=== PATIENT | female | born 1975 | race Caucasian/White ===

== ENCOUNTER → 2018-07-29 15:16 | Outpatient (CLI) | payer MEDICAID, SELFPAY ==
[2018-07-29 15:39] LABS: Basophils # 0.1 K/mm3 (0-0.2); Basophils % 0.9 % (0.1-2.0); Eosinophils # 0.3 K/mm3 (0.0-0.4); Eosinophils % 2.8 % (0.1-12.0); Hematocrit 33.7 % (37.0-47.0); Hemoglobin 10.9 g/dL (12.2-16.2); Lymphocytes # 2.5 K/mm3 (0.7-4.5); Mean Corpuscular HGB Conc 32.3 g/dL (31.8-35.4); Mean Corpuscular Hemoglobin 29.2 pg (27.0-31.2); Mean Corpuscular Volume 90.5 fl (81-99); Monocytes # 0.4 K/mm3 (0.1-1.0); Neutrophils # 6.6 K/mm3 (1.8-7.8); Neutrophils % 67.3 % (37.0-80.0); Platelet Count 354 K/mm3 (142-424); Red Blood Count 3.72 M/mm3 (4.20-5.40); Red Cell Distribution Width 14.1 % (11.5-17.5); White Blood Count 9.8 K/mm3 (4.8-10.8)
[2018-07-31 09:21] LABS: HIV Screen 4th Generation wRfx Non Reactive (Non Reactive)
[2018-07-31 14:20] LABS: Hepatitis B Surface Antigen Negative (Negative); Hepatitis C Antibody <0.1 s/co ratio (0.0-0.9); Rapid Plasma Reagin Ab Titer Non Reactive (NonRea<1:1); Rubella Antibodies, IgG <0.90 index (Immune >0.99)
== END ==
PROVIDERS: Visit Provider Nurse Practitioner Obstetrics & Gynecology
DX: Z3A.01 Less than 8 weeks gestation of pregnancy (principal)
CPT/HCPCS: 36415; 85025; 86592; 86703; 86762; 86850; 87340; 87380; G0432

== ENCOUNTER → 2018-08-07 14:43 | Outpatient (CLI) | payer MEDICAID, SELFPAY ==
--- NOTE | 2018-08-07 14:45 | US_ITS ---
US OB transvaginal HISTORY: ITS.REASON: US OB- Dates ORDERING PHYSICIAN: Marcin Shah MD PATIENT AGE: 43 years COMPARISON: None FINDINGS: An intrauterine gestational sac is present with a pole with a crown-rump length of 1.84cm correlating to gestational age of 8w3d. heart tones are present with an FHR of 174 bpm's. Yolk sac is noted. Adnexa: 1 cm left corpus luteum. IMPRESSION: Live intrauterine gestation at 8 weeks 3 days days as described above. Estimated due date by Ultrasound is 03/16/2019
== END ==
PROVIDERS: PCP Internal Medicine Adolescent Medicine; Visit Provider Nurse Practitioner Obstetrics & Gynecology
DX: O26.841 Uterine size-date discrepancy, first trimester (principal)
CPT/HCPCS: 76817

== ENCOUNTER 2018-08-08 08:53 | Outpatient (RCR) | payer MEDICAID, SELFPAY ==
--- NOTE | 2018-08-08 09:52 | HMH.OTOPEV ---
OT Inpatient Evaluation Rehab OT Outpatient Eval Start: 08/08/18 09:37 Freq: Status: Active Protocol: Document 08/08/18 09:37 RMSONIA (Rec: 08/08/18 09:52 [facility] [id number]) Electronically Signed By Curtis López OT 08/08/18 09:37 Outpatient Therapy Subjective History Subjective History Pt is a 43 year old female who reports to therapy for initial evaluation to right shoulder. 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 Pt explains this is when her pain began and has gradually become worse. Pt does demonstrate with a slight decrease in strength and AROM at right shoulder. Pt is also reporting she has tingling down her arm and into her fingers. She has not had an MRI or Xrays because she is currently 8 weeks . Pt will continue to be seen twice a week in order to address these deficits. Chief Complaint Pain Stiff Symptom Type Ache Throb Burning Tingling Symptoms Relieved By Rest/Positioning Symptoms Aggravated By Physical Activity Lifting Prior Functional Limitations None Current Functional Limitations Reaching Lifting Housework Sleeping Symptom Description Constant but Variable Level of pain today (0-10) 2 Pain scale - at its best (0-10) 1 Pain scale - at its worst (0-10) 10 Shoulder/Elbow Eval Shoulder Objective Measurements Shoulder ROM Right Shoulder ROM Limitations Pain Shoulder Abduction Active Range of 120 degrees Motion (degrees) Shoulder Flexion Active Range of Motion 115 degrees (degrees) Query Text: Shoulder External Rotation Active Range 65 degrees of Motion (degrees) Shoulder Internal Rotation Active Range 60 degrees of Motion (degrees) pain with active ROM shoulder exam right standard
== END 2018-08-08 09:00 | disposition home or self-care (01) ==
LOC: OT 08:53
PROVIDERS: Visit Provider Nurse Practitioner Family
DX: M67.911 Unspecified disorder of synovium and tendon, right shoulder (principal)
CPT/HCPCS: 97165

== ENCOUNTER → 2018-10-01 12:35 | Outpatient (CLI) | payer MEDICAID, SELFPAY ==
[2018-10-03 06:14] LABS: Buprenorphine, Urine Negative ng/mL (Cutoff=10)
== END ==
PROVIDERS: Visit Provider Nurse Practitioner Obstetrics & Gynecology
DX: Z34.90 Encounter for supervision of normal pregnancy, unspecified, unspecified trimester (principal)
CPT/HCPCS: 80307

== ENCOUNTER → 2018-10-31 12:45 | Outpatient (CLI) | payer MEDICAID, SELFPAY ==
--- NOTE | 2018-10-31 12:46 | US_ITS ---
US OB /maternal detail: INDICATION: ITS.REASON: US OB Complete ORDERING PHYSICIAN: Marcin Shah MD PATIENT AGE: 43 years TECHNIQUE: ultrasound transabdominal scanning. COMPARISON: No previous relevant studies. FINDINGS: Single viable intrauterine gestation. Cephalic position. Placenta: Lateral posterior placenta grade 1. There is a oval area of ossification is seen along the anterior aspect of the uterine wall possibly due to a small fibroid at approximately 3 cm. There is average amount fluid. The cervix appears satisfactory. Closed and measuring 3 cm in length. Complete survey performed and was unremarkable on the submitted images as in PACS. No discrete anomalies identified on survey imaging by technologist. Active fetus. Three-vessel cord with satisfactory umbilical cord insertion. 4- chamber heart noted. Survey of brain & ventricles unremarkable. Face and neck survey unremarkable. Diaphragm and chest views unremarkable. Abdomen: Both kidneys noted and unremarkable. Stomach noted and satisfactory. Spine: Survey of the spine satisfactory with no anomalies identified nor imaged. Both arms and legs noted. Amniotic Fluid: Adequate. Maternal adnexa: No significant findings. Measurements: Average ultrasound age 20w5d. Gestational Age 20w4d. Estimated due date by ultrasound age 0703/15/2019. Estimated weight 379 grams. BPD = 20w4d OFD = 21w0d HC = 20w1d AC = 21w0d FL = 21w0d Growth Percentile= 59% Heart Rate = 144 Cerebellum = 20w3d Humerus = 21w4d HC/AC is 1.11 (1.09-1.26). CI is 76% (70-86%). FL/BPD is 72%. FL/AC is 22%. IMPRESSION: There is a single fetus in cephalic presentation. heart body motion noted. The fetus is active. Average ultrasound age is 20 weeks and 5 days. All parameters correlate. No obvious anomalies. There is a persistent isoechoic area along the anterior aspect of the uterine wall possibly due to small fibroid at 3 cm.
== END ==
PROVIDERS: PCP Internal Medicine Adolescent Medicine; Visit Provider Nurse Practitioner Obstetrics & Gynecology
DX: Z36.0 Encounter for antenatal screening for chromosomal anomalies (principal)
CPT/HCPCS: 76811

== ENCOUNTER 2019-03-08 11:09 | Inpatient (IN) ==
[2019-03-08 12:14] LABS: Microscopic, Urine URINE MICROSCOPIC (MICROSCOPIC)
[2019-03-08 12:17] LABS: Appearance,Urine CLEAR (Clear); Bilirubin,Urine Negative (Negative); Blood, Urine 1+ (Negative); Color,Urine YELLOW (Yellow); Glucose,Urine (UA) Negative (Negative); Ketones,Urine Negative (Negative); Leukocyte Esterase,Urine Negative (Negative); PH,Urine 6.5 (5.0-8.5); Protein,Urine 3+ (Negative); Specific Gravity, Urine 1.025 (1.005-1.030); Urobilinogen,Urine 0.2 EU/dl (0.2)
[2019-03-08 12:22] LABS: Basophils # 0.1 K/mm3 (0-0.2); Basophils % 0.5 % (0.1-2.0); Eosinophils # 0.1 K/mm3 (0.0-0.4); Hematocrit 34.3 % (37.0-47.0); Hemoglobin 10.9 g/dL (12.2-16.2); Lymphocytes # 1.4 K/mm3 (0.7-4.5); Lymphocytes % 11.3 % (10-50); Mean Corpuscular HGB Conc 31.7 g/dL (31.8-35.4); Mean Corpuscular Volume 88.3 fl (81-99); Mean Platelet Volume 9.5 fl (7.4-10.4); Monocytes # 0.5 K/mm3 (0.1-1.0); Monocytes % 3.6 % (1.7-9.3); Neutrophils # 10.7 K/mm3 (1.8-7.8); Neutrophils % 83.6 % (37.0-80.0); Platelet Count 168 K/mm3 (142-424); Red Blood Count 3.88 M/mm3 (4.20-5.40); White Blood Count 12.8 K/mm3 (4.8-10.8)
[2019-03-08 12:28] LABS: Amphetamine/Metha Screen,Urine Negative ng/mL (<1000); Barbiturates Screen,Urine Negative ng/mL (<200); Benzodiazepines Screen,Urine Negative ng/mL (<200); Cannabinoid Screen,Urine Positive ng/mL (<50); Cocaine Screen,Urine Negative ng/mL (<300); Methadone Screen,Urine Negative ng/mL (<300); Opiate Screen,Urine Negative ng/mL (<300); Phencyclidine Screen,Urine Negative ng/mL (<25)
[2019-03-08 12:38] LABS: Bacteria,Urine Trace /lpf
--- NOTE | 2019-03-08 14:23 | Progress Note ---
[facility] Anesthesia Checklist - Patient Identification Patient Identification: Arm Band, Verbal (Name & ) - Structural Data Admitted From: Inpatient Planned Operative Procedure/s: labor epidural Consent for Planned Operative Procedure(s) Verified: Yes Verified Documents: History and Physical - NPO Status Verified Time NPO: 11:00 - Additional verifications Patient : Yes Anesthesia Reactions: No Hx Blood Transfusions: No Blood Transfusion Reaction: No Cephalosporin Allergy: No Previous Colonoscopy: No - Cardiovascular Assessment Heart Sounds: S1 & S2 Pulse Strength: Baseline Pulse Rhythm: Regular Peripheral Edema: No - Airway Assessment C-Spine Mobility Assessed: Yes TMJ Mobility Assessed: Yes Dentition: Edentulous - Neurological Assessment Level of Consciousness: Awake, Alert, Appropriate Hx Seizures: No Numbness or tingling in extremities: No - Anesthesia Plan Anesthesia Risk discussed: Yes Anesthesia Plan: Verified ASA Class: III Anesthesia Type: Epidural [facility] History I have reviewed the patient's past medical history: Yes Medical History: Denies:: Cancer, Diabetes Mellitus Type 1, Diabetes Mellitus Type 2, MRSA *Have you ever received a pneumonia vaccine?: No *Have you received a flu vaccine this season?: No Amputation: No Fractures: No - *Social History Smoking Status: Current every day smoker Tobacco Type: cigarettes # Packs/Day (cigarettes): 1 Alcohol Intake: never Substance Use Type: former substance user *Occupational Status:: employed *Travel in the last 8 weeks: None Family Hx:: No significant family history
--- NOTE | 2019-03-08 14:54 | History & Physical Report ---
*Admission Date: 03/08/19 *Chief complaint: contractions *History of present illness: 43 yo @ 38 6/7 by 8 week ultrasound presented with complaint of contractions. Patient was not sure about LOF but amnisure was negative. care with Dr. Shah but no appointments since 12/25/18 (28wks) complicated by Grand-multiparity, AMA, CHTN (no meds), Tobacco abuse 1 PPD, +UDS (THC), Anemia (Hgb 10.9), Rubella Non-Immune maternal status. She had 1st trimester She also has a history of genital condyloma and chlamydia, but chlamydia testing was negative during this . Anatomy ultrasound noted a 3cm mass anteriorly felt to be c/w a uterine fibroid, but no comment was made on this lesion in the ultrasound report from 12 weeks earlier. Because of her insufficient care, no 1 hour GCT was performed and GBS status is unknown. FH on exam is only 30cm and she has a history of 4 & 5# infants at 40w gestation when delivered. Upon presentation, the heart tracing showed a concerning decrease in variability and both late and variable decelerations. Cervix was 3cm dilated and she was admitted for labor. BP was also elevated in severe range, with readings 166/92, 194/109, 185/110, 191/109. She was given a dose of IV Hydralazine (10mg) and started on Magnesium sulfate (4gm bolus, 2gm/hr). Amniotomy was performed with scant amniotic fluid return and thick meconium noted. BP remained persistently in severe range and she was given another dose of IV hydralizine (10mg). At this time, cervix has progressed to 4cm and anesthesia has been requested to place epidural. [facility] History I have reviewed the patient's past medical history: Yes Medical History: Reports:: Depression, Hypertension Denies:: Cancer, Diabetes Mellitus Type 1, Diabetes Mellitus Type 2, MRSA *Have you ever received a pneumonia vaccine?: No *Have you received a flu vaccine this season?: No Amputation: No Fractures: No - *Social History Smoking Status: Current every day smoker Tobacco Type: cigarettes # Packs/Day (cigarettes): 1 Alcohol Intake: never Substance Use Type: former substance user *Occupational Status:: employed *Travel in the last 8 weeks: None Family Hx:: No significant family history PAYMENT MANAGER history: Additional PAYMENT MANAGER History (Chlamydia, Condyloma) : 12 Para: 4 A: 7 Review of Systems - Review of Systems CONSTITUTIONAL: no fever/chills HEENT: no oral lesions PULMONARY: no shortness of breath or difficulty breathing CV: no racing heart, palpitations or chest pain ABD: no abdominal pain, N/V : + contractions SKIN: no new rash or skin lesions EXT: no edema NEURO: no mental status changes PSYCH: no current anxiety/depression Meds Home Medications Medication Instructions Recorded Confirmed Type vitamins no.111-iron 38 1 cap PO DAILY 09/03/18 12/25/18 History mg-folate 1 mg-dha 225 mg capsule ferrous sulfate 325 mg (65 mg 325 mg PO DAILY 12/25/18 12/25/18 History iron) tablet Allergies Allergy/AdvReac Type Severity Reaction Status Date / Time No Known Allergies Allergy Verified 12/25/18 11:01 Exam Vital signs and Labs for Last 24 Hours: Laboratory Results - last 24 hr 03/08/19 11:20: Urine Color Yellow, Urine Appearance Clear, Urine pH 6.5, Ur Specific [place] 1.025, Urine Protein 3+, Urine Glucose (UA) Negative, Urine Ketones Negative, Urine Blood 1+, Urine Nitrate Negative, Urine Bilirubin Negative, Urine Urobilinogen 0.2, Ur Leukocyte Esterase Negative, Urine WBC 3-5, Ur Squamous Epith Cells 5-10, Urine Bacteria Trace 03/08/19 11:20: Urine Opiates Screen Negative, Urine Methadone Screen Negative, Ur Barbituates Screen Negative, Ur Phencyclidine Scrn Negative, Ur Amphetamines Screen Negative, U Benzodiazepines Scrn Negative, Urine Cocaine Screen Negative, U Marijuana (THC) Screen Positive H 03/08/19 11:23: Membrane Rupture Negative 03/08/19 12:00: WBC 12.8 H, RBC 3.88 L, Hgb 10.9 L, Hct 34.3 L, MCV 88.3, MCH 28.0, MCHC 31.7 L, RDW 16.0, Plt Count 168, MPV 9.5, Neut % (Auto) 83.6 H, Lymph % (Auto) 11.3, [place] % (Auto) 3.6, Eos % (Auto) 1.0, Baso % (Auto) 0.5, Neut # (Auto) 10.7 H, Lymph # (Auto) 1.4, [place] # (Auto) 0.5, Eos # (Auto) 0.1, Baso # (Auto) 0.1 03/08/19 12:00: Blood Type A Positive, Antibody Screen Negative 03/08/19 12:25: Magnesium 1.8 I & O for Last 24 hours: Intake & Output 03/06/19 03/07/19 03/08/19 03/09/19 11:59 11:59 11:59 11:59 Weight 152 lb Narrative: CONSTITUTIONAL: no acute distress HEENT: mucous membranes moist PULMONARY: breathing unlabored without audible wheezes CV: no tachycardia or visible JVD; normal LE peripheral pulses ABD: soft, NT/ND, no guarding. Gravid uterus but small for GA : cervix 370/-1 SKIN: no visible rash or lesions HEME: no lymphadenopathy EXT: no edema LEs NEURO: alert/oriented, no altered mental status PSYCH: appropriate mood and demeanor without visible anxiety/depression NST: [place]: 140 Variability: minimal Accelerations: yes Decelerations: variable and late Impression: Category 2 Assessment and Plan (1) 38 weeks gestation of Current visit: Yes Status: Acute Category: Medical Code(s): Z3A.38 - 38 weeks gestation of (2) Insufficient care Problem details: Last visit 28 wks Current visit: Yes Status: Acute Category: Medical Code(s): O09.30 - Supervision of with insufficient care, unspecified trimester (3) Grand multiparity Problem details: Current visit: Yes Status: Acute Category: Medical Code(s): Z64.1 - Problems related to multiparity (4) Advanced maternal age (AMA), 40 years or greater Current visit: Yes Status: Acute Category: Medical (5) Chronic hypertension affecting Current visit: Yes Status: Acute Category: Medical Code(s): O10.919 - Unspecified pre-existing hypertension complicating , unspecified trimester (6) Severe preeclampsia Current visit: Yes Status: Acute Category: Medical Code(s): O14.10 - Severe pre-eclampsia, unspecified trimester (7) heart rate decelerations affecting management of mother Current visit: Yes Status: Acute Category: Medical Code(s): O36.8390 - Maternal care for abnormalities of the heart rate or rhythm, unspecified trimester, not applicable or unspecified (8) Oligohydramnios Current visit: Yes Status: Acute Category: Medical Code(s): O41.00X0 - Oligohydramnios, unspecified trimester, not applicable or unspecified (9) Thick meconium stained amniotic fluid Current visit: Yes Status: Acute Category: Medical Code(s): P96.83 - Meconium staining (10) Rubella non-immune status, antepartum Current visit: Yes Status: Acute Category: Medical Code(s): O99.89 - Other specified diseases and conditions complicating , childbirth and the puerperium; Z28.3 - Underimmunization status (11) Anemia complicating Current visit: Yes Status: Acute Category: Medical Code(s): O99.019 - Anemia complicating , unspecified trimester (12) Positive urine drug screen Problem details: care and labor admission Current visit: Yes Stat us: Acute Category: Medical Code(s): R82.5 - Elevated urine levels of drugs, medicaments and biological substances (13) Mild tetrahydrocannabinol (THC) abuse Current visit: Yes Status: Acute Category: Medical Code(s): F12.10 - Cannabis abuse, uncomplicated (14) Tobacco smoking complicating Current visit: Yes Status: Acute Category: Medical Code(s): O99.330 - Smoking (tobacco) complicating , unspecified trimester (15) GBS screening not performed Current visit: Yes Status: Acute Category: Medical (16) Uterine fibroid in Problem details: 3cm, anterior Current visit: Yes Status: Acute Category: Medical Code(s): O34.10 - Maternal care for benign tumor of corpus uteri, unspecified trimester; D25.9 - Leiomyoma of uterus, unspecified (17) Medication exposure during first trimester of Problem details: Paxil, Gabapentin Current visit: Yes Status: Acute Category: Medical Code(s): O09.891 - Supervision of other high risk pregnancies, first trimester - Assessment and plan all Dx Assessment and Plan for all problems:: 38 wks, latent labor with concerning status on NST Admitted with intention for delivery S/P amniotomy, but not likely to tolerate pitocin Patient and advised of increased risk of delivery for non- reassuring status and maternal stability with severe range blood pressures Continuous internal and uterine monitoring Continue magnesium sulfate 2gm/hour until 24 hours post-delivery GBS prophylaxis started Consider amnioinfusion if NST remains concerning but cervix progressing with hope for vaginal delivery SW consult
--- NOTE | 2019-03-08 17:47 | Procedure Note ---
- Delivery Note Delivery Date:: 03/08/19 Delivery Time:: 16:57 Anesthesia Type: Epidural Was labor medically induced?: No Infant delivered prior to 39 weeks?: Yes Justification for early elective delivery:: Active Labor, Distress, Pre- eclampsia Gender: Female at 1 minute: 7 at 5 minutes: 9 Delivery Procedure:: Precipitous, spontaneous vaginal delivery of liveborn female infant over intact perineum. Delivery uncomplicated No nuchal cord, no shoulder dystocia with delivery Infant taken to warmer immediately after umbilical cord clamped/cut, with standard nursing assessment performed Manager Of Recruiting called for delivery due to multiple issues Apgars: 7 & 9 Placenta spontaneously expressed and examined; noted to be complete/intact. Vulva, vagina, and cervix inspected; no lacerations present EBL: 100 cc All sponge/needle/instrument counts correct at conclusion of procedure Disposition: Mom/baby stable to recovery in LDRP Placental Delivery Description: Spontaneous
[2019-03-09 07:03] LABS: Hematocrit 30.3 % (37.0-47.0)
[2019-03-09 07:38] LABS: Hemoglobin 9.7 g/dL (12.2-16.2)
--- NOTE | 2019-03-09 13:11 | Progress Note ---
Internal Medicine - PN: Subj *Date: 03/09/19 *Time: 13:08 Interval history: PPD #1 Patient c/o feeling tired with the magnesium sulfate, but denies any SOB BP overnight has continued to be elevated, with several values in the severe range in spite of labetalol 300 po BID Denies any headache, visual changes or RUQ pain Lochia appropriate and Hgb today is 9.7, compared to 10.9 at admission Asymptomatic with [id number] anemia Voiding without difficulty Exam Vital signs and Labs for Last 24 Hours: Temp Pulse Resp BP Pulse Ox 97.6 F 80 20 129/74 100 03/08/19 11:14 03/08/19 11:14 03/08/19 11:14 03/08/19 11:14 03/08/19 11:14 Laboratory Results - last 24 hr 03/08/19 12:00: Blood Type A Positive, Antibody Screen Negative 03/08/19 12:25: Magnesium 1.8 03/09/19 06:10: Hgb 9.7 L D, Hct 30.3 L 03/09/19 06:10: Magnesium 8.3 H* D I & O for Last 24 hours: Intake & Output 03/07/19 03/08/19 03/09/19 03/10/19 11:59 11:59 11:59 11:59 Weight 152 lb Narrative: CONSTITUTIONAL: no acute distress HEENT: mucous membranes moist PULMONARY: breathing unlabored without audible wheezes CV: no tachycardia or visible JVD; normal LE peripheral pulses ABD: soft, NT/ND, no guarding : fundus firm at/below umbilicus SKIN: no visible rash or lesions EXT: no edema LEs NEURO: alert/oriented, no altered mental status, OLVERA or visual changes PSYCH: appropriate mood and demeanor without visible anxiety/depression Assessment and Plan (1) 38 weeks gestation of Current visit: Yes Status: Acute Category: Medical Code(s): Z3A.38 - 38 weeks gestation of (2) Insufficient care Problem details: Last visit 28 wks Current visit: Yes Status: Acute Category: Medical Code(s): O09.30 - Supervision of with insufficient care, unspecified trimester (3) Grand multiparity Problem details: Current visit: Yes Status: Acute Category: Medical Code(s): Z64.1 - Problems related to multiparity (4) Advanced maternal age (AMA), 40 years or greater Current visit: Yes Status: Acute Category: Medical (5) Chronic hypertension affecting Current visit: Yes Status: Acute Category: Medical Code(s): O10.919 - Unspecified pre-existing hypertension complicating , unspecified trimester (6) Severe preeclampsia Current visit: Yes Status: Acute Category: Medical Code(s): O14.10 - Severe pre-eclampsia, unspecified trimester (7) heart rate decelerations affecting management of mother Current visit: Yes Status: Acute Category: Medical Code(s): O36.8390 - Maternal care for abnormalities of the heart rate or rhythm, unspecified trimester, not applicable or unspecified (8) Oligohydramnios Current visit: Yes Status: Acute Category: Medical Code(s): O41.00X0 - Oligohydramnios, unspecified trimester, not applicable or unspecified (9) Thick meconium stained amniotic fluid Current visit: Yes Status: Acute Category: Medical Code(s): P96.83 - Meconium staining (10) Rubella non-immune status, antepartum Current visit: Yes Status: Acute Category: Medical Code(s): O99.89 - Other specified diseases and conditions complicating , childbirth and the puerperium; Z28.3 - Underimmunization status (11) Anemia complicating Current visit: Yes Status: Acute Category: Medical Code(s): O99.019 - Anemia complicating , unspecified trimester (12) Positive urine drug screen Problem details: care and labor admission Current visit: Yes Status: Acute Category: Medical Code(s): R82.5 - Elevated urine levels of drugs, medicaments and biological substances (13) Mild tetrahydrocannabinol (THC) abuse Current visit: Yes Status: Acute Category: Medical Code(s): F12.10 - Cannabis abuse, uncomplicated (14) Tobacco smoking complicating Current visit: Yes Status: Acute Category: Medical Code(s): O99.330 - Smoking (tobacco) complicating , unspecified trimester (15) GBS screening not performed Current visit: Yes Status: Acute Category: Medical (16) Uterine fibroid in Problem details: 3cm, anterior Current visit: Yes Status: Acute Category: Medical Code(s): O34.10 - Maternal care for benign tumor of corpus uteri, unspecified trimester; D25.9 - Leiomyoma of uterus, unspecified (17) Medication exposure during first trimester of Problem details: Paxil, Gabapentin Current visit: Yes Status: Acute Category: Medical Code(s): O09.891 - Supervision of other high risk pregnancies, first trimester - Assessment and plan all Dx Assessment and Plan for all problems:: Continue magnesium sulfate x 24 hours post-delivery Magnesium level currently pending Continue labetalol 300 po BID; will add second agent with procardia 60XL po daily Infant management per peds; placenta was sent for pathology
--- NOTE | 2019-03-10 17:11 | Progress Note ---
Internal Medicine - PN: Subj *Date: 03/10/19 *Time: 17:10 Interval history: She is doing very well. She is eating and drinking and ambulating. She is breast-feeding. Her lochia is normal. Exam Vital signs and Labs for Last 24 Hours: Temp Pulse Resp BP Pulse Ox 98.7 F 64 18 158/78 H 98 03/10/19 08:00 03/10/19 08:00 03/10/19 08:00 03/10/19 12:00 03/10/19 08:00 I & O for Last 24 hours: Intake & Output 03/08/19 03/09/19 03/10/19 03/11/19 11:59 11:59 11:59 11:59 Weight 152 lb - Constitutional no acute distress Assessment and Plan (1) 38 weeks gestation of Current visit: Yes Status: Acute Category: Medical Code(s): Z3A.38 - 38 weeks gestation of (2) Insufficient care Problem details: Last visit 28 wks Current visit: Yes Status: Acute Category: Medical Code(s): O09.30 - Supervision of with insufficient care, unspecified trimester (3) Grand multiparity Problem details: Current visit: Yes Status: Acute Category: Medical Code(s): Z64.1 - Problems related to multiparity (4) Advanced maternal age (AMA), 40 years or greater Current visit: Yes Status: Acute Category: Medical (5) Chronic hypertension affecting Current visit: Yes Status: Acute Category: Medical Code(s): O10.919 - Unspecified pre-existing hypertension complicating , unspecified trimester (6) Severe preeclampsia Current visit: Yes Status: Acute Category: Medical Code(s): O14.10 - Severe pre-eclampsia, unspecified trimester (7) heart rate decelerations affecting management of mother Current visit: Yes Status: Acute Category: Medical Code(s): O36.8390 - Maternal care for abnormalities of the heart rate or rhythm, unspecified trimester, not applicable or unspecified (8) Oligohydramnios Current visit: Yes Status: Acute Category: Medical Code(s): O41.00X0 - Oligohydramnios, unspecified trimester, not applicable or unspecified (9) Thick meconium stained amniotic fluid Current visit: Yes Status: Acute Category: Medical Code(s): P96.83 - Meconium staining (10) Rubella non-immune status, antepartum Current visit: Yes Status: Acute Category: Medical Code(s): O99.89 - Other specified diseases and conditions complicating , childbirth and the puerperium; Z28.3 - Underimmunization status (11) Anemia complicating Current visit: Yes Status: Acute Category: Medical Code(s): O99.019 - Anemia complicating , unspecified trimester (12) Positive urine drug screen Problem details: care and labor admission Current visit: Yes Status: Acute Category: Medical Code(s): R82.5 - Elevated urine levels of drugs, medicaments and biological substances (13) Mild tetrahydrocannabinol (THC) abuse Current visit: Yes Status: Acute Category: Medical Code(s): F12.10 - Cannabis abuse, uncomplicated (14) Tobacco smoking complicating Current visit: Yes Status: Acute Category: Medical Code(s): O99.330 - Smoking (tobacco) complicating , unspecified trimester (15) GBS screening not performed Current visit: Yes Status: Acute Category: Medical (16) Uterine fibroid in Problem details: 3cm, anterior Current visit: Yes Status: Acute Category: Medical Code(s): O34.10 - Maternal care for benign tumor of corpus uteri, unspecified trimester; D25.9 - Leiomyoma of uterus, unspecified (17) Medication exposure during first trimester of Problem details: Paxil, Gabapentin Current visit: Yes Status: Acute Category: Medical Code(s): O09.891 - Supervision of other high risk pregnancies, first trimester - Assessment and plan all Dx Assessment and Plan for all problems:: She is doing well. Her blood pressure has improved. We will continue with the labetalol and nifedipine. We will plan to send her home in the next few days.
--- NOTE | 2019-03-11 07:13 | Progress Note ---
Internal Medicine - PN: Subj *Date: 03/11/19 *Time: 07:12 Interval history: She continues to do well this morning. She is eating and drinking and ambulate in. She is breast-feeding. Her lochia is normal. Exam Vital signs and Labs for Last 24 Hours: Temp Pulse Resp BP Pulse Ox 98.7 F 64 18 158/78 H 98 03/10/19 08:00 03/10/19 08:00 03/10/19 08:00 03/10/19 12:00 03/10/19 08:00 I & O for Last 24 hours: Intake & Output 03/08/19 03/09/19 03/10/19 03/11/19 11:59 11:59 11:59 11:59 Weight 152 lb - Constitutional no acute distress Assessment and Plan (1) 38 weeks gestation of Current visit: Yes Status: Acute Category: Medical Code(s): Z3A.38 - 38 weeks gestation of (2) Insufficient care Problem details: Last visit 28 wks Current visit: Yes Status: Acute Category: Medical Code(s): O09.30 - Supervision of with insufficient care, unspecified trimester (3) Grand multiparity Problem details: Current visit: Yes Status: Acute Category: Medical Code(s): Z64.1 - Problems related to multiparity (4) Advanced maternal age (AMA), 40 years or greater Current visit: Yes Status: Acute Category: Medical (5) Chronic hypertension affecting Current visit: Yes Status: Acute Category: Medical Code(s): O10.919 - Unspecified pre-existing hypertension complicating , unspecified trimester (6) Severe preeclampsia Current visit: Yes Status: Acute Category: Medical Code(s): O14.10 - Severe pre-eclampsia, unspecified trimester (7) heart rate decelerations affecting management of mother Current visit: Yes Status: Acute Category: Medical Code(s): O36.8390 - Maternal care for abnormalities of the heart rate or rhythm, unspecified trimester, not applicable or unspecified (8) Oligohydramnios Current visit: Yes Status: Acute Category: Medical Code(s): O41.00X0 - Oligohydramnios, unspecified trimester, not applicable or unspecified (9) Thick meconium stained amniotic fluid Current visit: Yes Status: Acute Category: Medical Code(s): P96.83 - Meconium staining (10) Rubella non-immune status, antepartum Current visit: Yes Status: Acute Category: Medical Code(s): O99.89 - Other specified diseases and conditions complicating , childbirth and the puerperium; Z28.3 - Underimmunization status (11) Anemia complicating Current visit: Yes Status: Acute Category: Medical Code(s): O99.019 - Anemia complicating , unspecified trimester (12) Positive urine drug screen Problem details: care and labor admission Current visit: Yes Status: Acute Category: Medical Code(s): R82.5 - Elevated urine levels of drugs, medicaments and biological substances (13) Mild tetrahydrocannabinol (THC) abuse Current visit: Yes Status: Acute Category: Medical Code(s): F12.10 - Cannabis abuse, uncomplicated (14) Tobacco smoking complicating Current visit: Yes Status: Acute Category: Medical Code(s): O99.330 - Smoking (tobacco) complicating , unspecified trimester (15) GBS screening not performed Current visit: Yes Status: Acute Category: Medical (16) Uterine fibroid in Problem details: 3cm, anterior Current visit: Yes Status: Acute Category: Medical Code(s): O34.10 - Maternal care for benign tumor of corpus uteri, unspecified trimester; D25.9 - Leiomyoma of uterus, unspecified (17) Medication exposure during first trimester of Problem details: Paxil, Gabapentin Current visit: Yes Status: Acute Category: Medical Code(s): O09.891 - Supervision of other high risk pregnancies, first trimester - Assessment and plan all Dx Assessment and Plan for all problems:: She is doing better. Her blood pressure has stabilized. She continues with labetalol and nifedipine. If she is doing better later today we may consider sending her home.
[2019-03-11 22:07] VITALS: BP 141/79
--- NOTE | 2019-03-12 09:15 | Discharge Summary ---
General - General Admission date:: 03/08/19 Discharge date: 03/12/19 HPI HPI: 43 yo @ 38 6/7 by 8 week ultrasound presented with complaint of contractions. Patient was not sure about LOF but amnisure was negative. care with Dr. Shah but no appointments since 12/25/18 (28wks) complicated by Grand-multiparity, AMA, CHTN (no meds), Tobacco abuse 1 PPD, +UDS (THC), Anemia (Hgb 10.9), Rubella Non-Immune maternal status. She had 1st trimester She also has a history of genital condyloma and chlamydia, but chlamydia testing was negative during this . Anatomy ultrasound noted a 3cm mass anteriorly felt to be c/w a uterine fibroid, but no comment was made on this lesion in the ultrasound report from 12 weeks earlier. Because of her insufficient care, no 1 hour GCT was performed and GBS status is unknow n. FH on exam is only 30cm and she has a history of 4 & 5# infants at 40w gestation when delivered. Upon presentation, the heart tracing showed a concerning decrease in variability and both late and variable decelerations. Cervix was 3cm dilated and she was admitted for labor. BP was also elevated in severe range, with readings 166/92, 194/109, 185/110, 191/109. She was given a dose of IV Hydralazine (10mg) and started on Magnesium sulfate (4gm bolus, 2gm/hr). Amniotomy was performed with scant amniotic fluid return and thick meconium noted. BP remained persistently in severe range and she was given another dose of IV hydralizine (10mg). At this time, cervix has progressed to 4cm and anesthesia has been requested to place epidural. Hospital Course Hospital Course: She progressed to full dilation and delivered spontaneously a liveborn female child at 4:57 PM in the afternoon of March 08, 2019. The baby weighed 3 pounds 14 ounces and was 17 inches long. She had Apgars of 7 at 1 and 9 at 5 minutes. She has remained on labetalol 200 mg twice daily as well as nifedipine 60 mg XL daily. Her blood pressures have remained reasonably normal in the 130-140 range over 70-90 range. She denies any headache, scotomata or epigastric pain. She is breast-feeding. She has a positive blood, she is rubella nonimmune and her group B strep status was unknown. Her motion picture set worker is Dr. Anaya. She will be discharged home to follow-up with me in approximately a week's time. She will continue with her labetalol 200 mg twice daily as well as nifedipine 60 mg XL. She will continue with her vitamins and iron. She is just taking [id number] analgesics for discomfort. She was seen by social organization professor because her UDS screen was positive and she will go home with her baby. Rhogam Administration: Not Indicated Objective Vital signs: Temp Pulse Resp BP Pulse Ox 98.7 F 75 18 141/79 H 98 03/11/19 20:33 03/11/19 20:33 03/11/19 20:33 03/11/19 20:33 03/11/19 20:33 no acute distress - *Routine HEENT Exam Head: Present: normocephalic Eye: Present: EOMI ENT: Present: mucous membranes moist DS: Diagnosis - Discharge Diagnosis (1) 38 weeks gestation of Status: Acute (2) Insufficient care Status: Acute Problem details: Last visit 28 wks (3) Grand multiparity Status: Acute Problem details: (4) Advanced maternal age (AMA), 40 years or greater Status: Acute (5) Chronic hypertension affecting Status: Acute (6) Severe preeclampsia Status: Acute (7) heart rate decelerations affecting management of mother Status: Acute (8) Oligohydramnios Status: Acute (9) Thick meconium stained amniotic fluid Status: Acute (10) Rubella non-immune status, antepartum Status: Acute (11) Anemia complicating Status: Acute (12) Positive urine drug screen Status: Acute Problem details: care and labor admission (13) Mild tetrahydrocannabinol (THC) abuse Status: Acute (14) Tobacco smoking complicating Status: Acute (15) GBS screening not performed Status: Acute (16) Uterine fibroid in Status: Acute Problem details: 3cm, anterior (17) Medication exposure during first trimester of Status: Acute Problem details: Paxil, Gabapentin Discharge Plan - Patient Discharge Instructions ACTIVITY: Ambulate as tolerated DIET: continue same diet Additional Instructions: no heavy lifting or strenuous activity nothing in vagina for 6 weeks follow-up with dr. shah on 03/20/19 at 11:00 Patient Instructions: Depression, [facility] Post Discharge Instructions - Follow up Plan Disposition: Home, Self-Prison Medications: Home Medications Medication Instructions Recorded Confirmed Type ferrous sulfate 325 mg (65 mg 325 mg PO DAILY 12/25/18 03/08/19 History iron) tablet Albuterol Sulfate [Albuterol 1 - 2 puff IH Q4HP PRN 03/09/19 03/09/19 History Sulfate Hfa] Fluticasone/Vilanterol [Breo 1 inh IH DAILY 03/09/19 03/09/19 History Ellipta 100-25 Mcg INH] Pnv No.95/Ferrous Fum/Folic AC 1 each PO DAILY 03/09/19 03/09/19 History [ Caplet] Labetalol HCl [Normodyne 100mg 300 mg PO 0500,1700 #60 tab 03/12/19 Rx tablet] NIFEdipine [Procardia XL 30mg 60 mg PO 1200 #30 tablet.er 03/12/19 Rx Tablet] Nicotine [Nicoderm 21mg/24hr 21 mg TD Q24H #14 patch.td24 03/12/19 Rx patch] Prescriptions/Medication Reconciliation: New Labetalol HCl [Normodyne 100mg tablet] 300 mg PO 0500,1700 #60 tab NIFEdipine [Procardia XL 30mg Tablet] 60 mg PO 1200 #30 tablet.er Nicotine [Nicoderm 21mg/24hr patch] 21 mg TD Q24H #14 patch.td24 Continued ferrous sulfate 325 mg (65 mg iron) tablet 325 mg PO DAILY Fluticasone/Vilanterol [Breo Ellipta 100-25 Mcg INH] 1 inh IH DAILY Pnv No.95/Ferrous Fum/Folic AC [ Caplet] 1 each PO DAILY Albuterol Sulfate [Albuterol Sulfate Hfa] 1 - 2 puff IH Q4HP PRN PRN Reason: BREATHING
== END 2019-03-12 10:00 | disposition home or self-care (01) | DRG 806 ==
LOC: OBOUT 11:09 → OB 11:11
PROVIDERS: ADMIT Obstetrics & Gynecology; ATTEND Obstetrics & Gynecology
CPT/HCPCS: 36415; 59025; 80305; 81001; 83735; 84112; 85014; 85018; 85025; 86850; 88307; 90707; 94761; C1758; J0290

== ENCOUNTER 2019-04-17 21:58 | Observation (INO) ==
[2019-04-17 22:19] LABS: Basophils # 0.1 K/mm3 (0-0.2); Basophils % 0.8 % (0.1-2.0); Eosinophils # 0.8 K/mm3 (0.0-0.4); Eosinophils % 4.9 % (0.1-12.0); Hematocrit 35.8 % (37.0-47.0); Hemoglobin 11.2 g/dL (12.2-16.2); Lymphocytes % 25.9 % (10-50); Mean Corpuscular HGB Conc 31.2 g/dL (31.8-35.4); Mean Corpuscular Volume 88.1 fl (81-99); Mean Platelet Volume 6.7 fl (7.4-10.4); Monocytes # 0.8 K/mm3 (0.1-1.0); Neutrophils # 9.7 K/mm3 (1.8-7.8); Neutrophils % 63.5 % (37.0-80.0); Platelet Count 602 K/mm3 (142-424); Red Blood Count 4.07 M/mm3 (4.20-5.40); Red Cell Distribution Width 14.1 % (11.5-17.5); White Blood Count 15.3 K/mm3 (4.8-10.8)
[2019-04-17 22:38] LABS: Alanine Aminotransferase 18 U/L (12-78); Albumin Level 3.5 gm/dL (3.4-5.0); Albumin/Globulin Ratio 0.9 (1.1-1.8); Alkaline Phosphatase 73 U/L (46-116); Anion Gap 13.2 mEq/L (5-15); Aspartate Amino Transferase 16 U/L (15-37); Bilirubin,Total 0.2 mg/dL (0.2-1.0); Blood Urea Nitrogen 17 mg/dL (7-18); Calcium 8.9 mg/dL (8.5-10.1); Carbon Dioxide 27 mmol/L (21.0-32.0); Chloride 101 mmol/L (98-107); Glucose 153 mg/dL (74-106); Sodium 138 mmol/L (136-145); Total Protein,Serum 7.5 gm/dL (6.4-8.2)
[2019-04-17 23:09] LABS: Eosinophils % 5 % (0-3); Lymphocytes % 27 % (10-50); Monocytes % 6 % (2-9); Neutrophils % 61 % (42-76); Total Cells Counted 100
[2019-04-17 23:10] LABS: Anisocytosis 1+
--- NOTE | 2019-04-17 23:53 | Emergency Department Note ---
ED Disposition Clinical Impression: Pelvic mass in female, Pelvic pain Disposition: Home, Self-Care Condition on Discharge: Good Instructions: Ovarian Cyst Additional Instructions: follow up as directed. Today, no evidence of torsion seen. Blood flow was good Referrals: Yasri Anaya MD [Primary Care Provider] - Time of Disposition: 01:59 - Critical Care Critical Care Time: No Attestation: On 04/17/19, the high probability of a clinically significant, sudden or life threatening deterioration of the following system(s) required my full and direct attention, intervention and personal management. The time I documented below is in addition to time spent performing reported procedures but includes the following listed in this critical care notation. Medical Decision Making - Medical Records Medical records reviewed: Yes: I reviewed the patient's medical records. - Davon Inquiry Pt receiving controlled substance: No Davon was queried for this patient: No Vital Signs: 04/17/19 22:06 04/17/19 23:58 Temperature 97.9 F Temperature Source Oral Pulse Rate [Right] 64 66 Respiratory Rate 16 18 Blood Pressure [Right Arm] 97/55 L 122/70 Blood Pressure Mean [Right Arm] 69 87 Blood Pressure Source [Right Arm] Automatic Cuff Automatic Cuff Blood Pressure Position [Right Arm] Supine Sitting 02 Sat by Pulse Oximetry 100 100 Oxygen Delivery Method Room Air Room Air - Lab Data Lab results reviewed: Yes: I reviewed the patient's lab results. Lab Results 04/17/19 22:09: WBC 15.3 H, RBC 4.07 L, Hgb 11.2 L, Hct 35.8 L, MCV 88.1, MCH 27.5, MCHC 31.2 L, RDW 14.1, Plt Count 602 H, MPV 6.7 L, Neut % (Auto) 63.5, Lymph % (Auto) 25.9, Powell % (Auto) 5.0, Eos % (Auto) 4.9, Baso % (Auto) 0.8, Neut # (Auto) 9.7 H, Lymph # (Auto) 4.0, Powell # (Auto) 0.8, Eos # (Auto) 0.8 H, Baso # (Auto) 0.1, Total Counted 100, Neutrophils % (Manual) 61, Lymphocytes % (Manual) 27, Monocytes % (Manual) 6, Eosinophils % (Manual) 5 H, Basophils % (Manual) 1.0, Platelet Estimate Normal, Anisocytosis 1+ 04/17/19 22:09: Sodium 138, Potassium 3.2 L, Chloride 101, Carbon Dioxide 27, Anion Gap 13.2, BUN 17, Creatinine 1.58 H, Estimated Creat Clear 48, Estimated GFR 36 L, Est GFR ( Amer) 44 L, Glucose 153 H, Calcium 8.9, Total Bilirubin 0.2, AST 16, ALT 18, Alkaline Phosphatase 73, Troponin I < 0.02, Total Protein 7.5, Albumin 3.5, Globulin 4.0 H, Albumin/Globulin Ratio 0.9 L Result diagrams: 04/17/19 22:09 04/17/19 22:09 Orders (Tests/Meds): ED MEDICATIONS Generic Name Dose Route Start Last Admin Trade Name Freq PRN Reason Stop Dose Admin Sodium Chloride 1,000 mls @ 999 mls/hr 04/17/19 23:45 04/17/19 23:55 Sod Chlor 0.9% 1000ml Bag IV 04/18/19 00:45 999 mls/hr .Q1H1M PAMELLA Administration Sodium Chloride 1,000 mls @ 999 mls/hr 04/17/19 23:45 04/17/19 22:46 Sod Chlor 0.9% 1000ml Bag IV 04/18/19 00:45 999 mls/hr .Q1H1M PAMELLA Administration ORDERS Category Date Time Status CT abdomen pelvis wo con Stat Cat Scan 04/18/19 00:[address] head/brain wo con Stat Cat Scan 04/17/19 22:11 Taken Drug Screen,Urine Stat Lab 04/17/19 22:11 Received Urinalysis and Microscopic Stat Lab 04/18/19 01:45 Received Urine , HCG Qual. Stat Lab 04/17/19 22:11 Received Dizzy HPI - General Chief Complaint: Dizziness Stated Complaint: weak very hot sweaty and dizzy Time Seen by Provider: 04/17/19 23:53 Mode of Arrival: Ambulatory Source of Information: Patient, Significant Other Limitations: No Limitations Description of Symptoms (Recalled from ER Triage Doc. 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 - History of Present Illness HPI Narrative: 37 days post-, tonight got dizzy/sweaty - Related Data Home Medications Medication Instructions Recorded Confirmed ferrous sulfate 325 mg (65 mg 325 mg PO DAILY 12/25/18 03/20/19 iron) tablet Albuterol Sulfate [Albuterol 1 - 2 puff IH Q4HP PRN 03/09/19 03/20/19 Sulfate Hfa] Fluticasone/Vilanterol [Breo 1 inh IH DAILY 03/09/19 03/20/19 Ellipta 100-25 Mcg INH] Pnv No.95/Ferrous Fum/Folic AC 1 each PO DAILY 03/09/19 03/20/19 [ Caplet] Previous Rx's Medication Instructions Recorded Labetalol HCl [Normodyne 100mg 300 mg PO 0500,1700 #60 tab 03/12/19 tablet] NIFEdipine [Procardia XL 30mg 60 mg PO 1200 #30 tablet.er 03/12/19 Tablet] Nicotine [Nicoderm 21mg/24hr 21 mg TD Q24H #14 patch.td24 03/12/19 patch] fluoxetine 10 mg capsule 10 mg PO DAILY #30 cap 03/20/19 Allergies Allergy/AdvReac Type Severity Reaction Status Date / Time No Known Allergies Allergy Verified 03/20/19 11:41 [facility] History - Hepatitis A Screen Drug use history?: Yes High risk sexual behaviors?: No History of sexually transmitted infection?: No Currently employed?: No Childcare worker?: No Do you have indoor plumbing?: Yes Do you have electricity?: Yes Attestation statement:: This patient has been screened for Hepatitis A risk factors. I have reviewed the patient's past medical history: Yes Medical History: Reports:: Depression, Hypertension Denies:: Cancer, Diabetes Mellitus Type 1, Diabetes Mellitus Type 2, MRSA, Seizures Other Medical History: Denies: Blood Transfusion Reaction Other Surgeries: No: Amputation: No Fractures: No - Social History Smoking Status: Current every day smoker Tobacco Type: cigarettes # Packs/Day (cigarettes): 2 Alcohol Intake: never Substance Use Type: former substance user, marijuana Occupational Status: unemployed - Psychiatric History Pschychiatric History:: Reports:: Depression Family Hx:: No significant family history DIRECTOR EDUCATION history: Additional DIRECTOR EDUCATION History ROS Obtained: Yes All systems reviewed & no additional complaints - Constitutional Constitutional: Denies fever(s) - Eyes Eyes: Denies change in vision - Cardiovascular Cardiovascular: Denies chest pain, Denies chest pain at rest, Reports diaphoresis - Respiratory Respiratory: No chest congestion, No dyspnea, No dyspnea on exertion - Genitourinary Female Genitourinary: Denies dysuria, Denies flank pain - Musculoskeletal Musculoskeletal: Denies abnormal gait, Denies joint pain, Denies joint stiffness, Denies joint swelling - Integumentary/Breasts Skin/Breast: Denies rash, Denies skin pain - Neurologic Neurologic: Denies syncope - Hematologic/Lymphatic Henatologic/Lymphatic: Denies easy bleeding, Denies easy bruising Physical Exam - General General appearance: alert, in no apparent distress - Head Head exam: atraumatic, normocephalic, normal inspection - Eye Eye exam: Present: normal appearance, PERRL, EOMI - ENT ENT exam: Present: normal exam, normal oropharynx, mucous membranes moist, TM's normal bilaterally, normal external ear exam - Neck Neck exam: Present: normal inspection, full ROM, trachea midline. Absent: meningismus, lymphadenopathy - Chest Chest inspection: Present: normal inspection, symmetric chest wall rise. A bsent: tenderness - Respiratory Respiratory exam: Present: normal lung sounds bilaterally. Absent: respiratory distress - Cardiovascular Cardiovascular exam: Present: regular rate, normal rhythm. Absent: JVD - Abdominal Exam Abdominal exam: Present: soft, normal bowel sounds. Absent: distention, tenderness, guarding - Extremities Exam Extremities exam: Present: normal inspection, full ROM, normal capillary refill. Absent: calf tenderness - Back Exam Back exam: Present: normal inspection. Absent: tenderness - Neurological Exam Neurological exam: Present: alert, oriented X3 - Psychiatric Psychiatric exam: Present: normal affect, normal mood - Skin Skin exam: Present: warm, dry, intact, normal color - Lymphatic Lymphatic Findings: no adenopathy
[2019-04-18 01:51] LABS: Microscopic, Urine URINE MICROSCOPIC (MICROSCOPIC)
[2019-04-18 01:59] LABS: Appearance,Urine CLEAR (Clear); Bilirubin,Urine Negative (Negative); Blood, Urine 1+ (Negative); Color,Urine YELLOW (Yellow); Glucose,Urine (UA) Negative (Negative); Ketones,Urine Negative (Negative); Leukocyte Esterase,Urine Negative (Negative); PH,Urine 6.5 (5.0-8.5); Protein,Urine 2+ (Negative); Specific Gravity, Urine 1.025 (1.005-1.030); Urobilinogen,Urine 0.2 EU/dl (0.2)
[2019-04-18 02:02] LABS: Bacteria,Urine 1+ /lpf; Hyaline Casts,Urine Occasional #/lpf (0); Mucus,Urine 1+ /lpf
[2019-04-18 02:09] LABS: Amphetamine/Metha Screen,Urine Negative ng/mL (<1000); Barbiturates Screen,Urine Negative ng/mL (<200); Benzodiazepines Screen,Urine Negative ng/mL (<200); Cannabinoid Screen,Urine Positive ng/mL (<50); Cocaine Screen,Urine Negative ng/mL (<300); Methadone Screen,Urine Negative ng/mL (<300); Opiate Screen,Urine Negative ng/mL (<300); Phencyclidine Screen,Urine Negative ng/mL (<25)
[2019-04-18 06:40] LABS: Basophils % 0.2 % (0.1-2.0); Eosinophils % 0.1 % (0.1-12.0); Hematocrit 35.3 % (37.0-47.0); Lymphocytes # 1.1 K/mm3 (0.7-4.5); Lymphocytes % 5.2 % (10-50); Mean Corpuscular Volume 87.8 fl (81-99); Mean Platelet Volume 6.6 fl (7.4-10.4); Monocytes # 0.6 K/mm3 (0.1-1.0); Monocytes % 2.9 % (1.7-9.3); Neutrophils # 18.7 K/mm3 (1.8-7.8); Neutrophils % 91.6 % (37.0-80.0); Platelet Count 483 K/mm3 (142-424); Red Blood Count 4.02 M/mm3 (4.20-5.40); Red Cell Distribution Width 14.2 % (11.5-17.5); White Blood Count 20.4 K/mm3 (4.8-10.8)
[2019-04-18 06:48] LABS: Anion Gap 16.4 mEq/L (5-15); Calcium 9.1 mg/dL (8.5-10.1)
--- NOTE | 2019-04-18 07:42 | Pharmacy Consult Notes ---
[facility] Pharmacy VTE Monitoring - Patient Demographics Admission date: 04/17/19 Report Date: 04/18/19 Time: 07:42 Allergies/Adverse Reactions: Patient Allergies No Known Allergies Allergy (Verified 03/20/19 11:41) Height: 1.6 m Weight: 65.062 kg Patient Problems: Current Active Problems Pelvic mass in female (Acute) Pelvic pain (Acute) - VTE Risk Labs: VTE Related Lab Results Hgb 11.0 g/dL (12.2-16.2) L 04/18/19 06:00 Hct 35.3 % (37.0-47.0) L 04/18/19 06:00 Plt Count 483 K/mm3 (142-424) H 04/18/19 06:00 BUN 17 mg/dL (7-18) 04/18/19 06:00 Creatinine 1.19 mg/dL (0.55-1.02) H D 04/18/19 06:00 Estimated Creat Clear 64 mL/min (50-200) 04/18/19 06:00 - Prophylaxis VTE Prophylaxis Ordered?: Yes Types of VTE Prophylaxis: TEDS Knee High Location of Applied Device: Bilateral Lower Extremeties - VTE Diagnosis Confirmed Treatment or plan recommended: Continue Current Treatment
--- NOTE | 2019-04-18 08:34 | History & Physical Report ---
*Admission Date: 04/17/19 *Chief complaint: Abdominal pain *History of present illness: 43-year-old white female, 5 weeks from an uncomplicated vaginal delivery, who was at home in her normal state of health, bottlefeeding her infant when she suddenly at 9:00 last night had the onset of severe abdominal pain and thought "I was going to ." She had her family check her blood pressure which was low, and then she had the onset of vomiting. Came to the emergency department where she was found to be hypertensive. Had minimal leukocytosis noted, evidence of mild dehydration with acute kidney injury, and was admitted to hospital after CT scan without p.o. or IV contrast showed evidence of small bowel obstruction. Overnight she has had one episode of diarrhea that she states has blood in it. She denies recent surgical history, recent diarrhea or vomiting. Recent medication changes. Recent diarrhea or unusual exposure to uncooked food or poor water sources. She denies that any of her family members have been ill with GI illnesses. [facility] History I have reviewed the patient's past medical history: Yes Medical History: Reports:: Depression, Hypertension Denies:: Cancer, Diabetes Mellitus Type 1, Diabetes Mellitus Type 2, MRSA, Seizures *Have you ever received a pneumonia vaccine?: No *Have you received a flu vaccine this season?: Yes Other Medical History: Denies: Blood Transfusion Reaction Other Surgeries: Yes: Other (ECTOPIC ). 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 Denies cardiac symptoms. GI symptoms as noted above. No recent vaginal bleeding. No skin rash. No joint pain. No ENT symptoms. - *Neurologic Denies abnormal walking, Denies fainting Meds Home Medications Medication Instructions Recorded Confirmed Type Fluoxetine HCl [Prozac] 10 mg PO DAILY 04/18/19 04/18/19 History Lisinopril/Hydrochlorothiazide 1 tab PO DAILY 04/18/19 04/18/19 History [Lisinopril-Hctz 20-25 mg Tab] Allergies Allergy/AdvReac Type Severity Reaction Status Date / Time No Known Allergies Allergy Verified 03/20/19 11:41 Exam Vital signs and Labs for Last 24 Hours: Temp Pulse Resp BP Pulse Ox 98.0 F 69 19 140/90 100 04/18/19 08:00 04/18/19 08:00 04/18/19 08:00 04/18/19 08:00 04/18/19 08:00 Laboratory Results - last 24 hr 04/17/19 22:09: WBC 15.3 H, RBC 4.07 L, Hgb 11.2 L, Hct 35.8 L, MCV 88.1, MCH 27.5, MCHC 31.2 L, RDW 14.1, Plt Count 602 H, MPV 6.7 L, Neut % (Auto) 63.5, Lymph % (Auto) 25.9, [place] % (Auto) 5.0, Eos % (Auto) 4.9, Baso % (Auto) 0.8, Neut # (Auto) 9.7 H, Lymph # (Auto) 4.0, [place] # (Auto) 0.8, Eos # (Auto) 0.8 H, Baso # (Auto) 0.1, Total Counted 100, Neutrophils % (Manual) 61, Lymphocytes % (Manual) 27, Monocytes % (Manual) 6, Eosinophils % (Manual) 5 H, Basophils % (Manual) 1.0, Platelet Estimate Normal, Anisocytosis 1+ 04/17/19 22:09: Sodium 138, Potassium 3.2 L, Chloride 101, Carbon Dioxide 27, Anion Gap 13.2, BUN 17, Creatinine 1.58 H, Estimated Creat Clear 48, Estimated GFR 36 L, Est GFR ( Amer) 44 L, Glucose 153 H, Calcium 8.9, Total Bilirubin 0.2, AST 16, ALT 18, Alkaline Phosphatase 73, Troponin I < 0.02, Total Protein 7.5, Albumin 3.5, Globulin 4.0 H, Albumin/Globulin Ratio 0.9 L 04/18/19 01:45: Urine Color Yellow, Urine Appearance Clear, Urine pH 6.5, Ur Specific [place] 1.025, Urine Protein 2+, Urine Glucose (UA) Negative, Urine Ketones Negative, Urine Blood 1+, Urine Nitrate Negative, Urine Bilirubin Negative, Urine Urobilinogen 0.2, Ur Leukocyte Esterase Negative, Urine WBC 3-5, Ur Squamous Epith Cells 5-10, Urine Bacteria 1+, Hyaline Casts Occasional, Urine Mucus 1+ 04/18/19 01:45: Urine HCG, Qual Negative 04/18/19 01:45: Urine Opiates Screen Negative, Urine Methadone Screen Negative, Ur Barbituates Screen Negative, Ur Phencyclidine Scrn Negative, Ur Amphetamines Screen Negative, U Benzodiazepines Scrn Negative, Urine Cocaine Screen Negative, U Marijuana (THC) Screen Positive H 04/18/19 06:00: WBC 20.4 H* D, RBC 4.02 L, Hgb 11.0 L, Hct 35.3 L, MCV 87.8, MCH 27.2, MCHC 31.0 L, RDW 14.2, Plt Count 483 H, MPV 6.6 L, Neut % (Auto) 91.6 H, Lymph % (Auto) 5.2 L, [place] % (Auto) 2.9, Eos % (Auto) 0.1, Baso % (Auto) 0.2, Neut # (Auto) 18.7 H, Lymph # (Auto) 1.1, [place] # (Auto) 0.6, Eos # (Auto) 0.0, Baso # (Auto) 0.0 04/18/19 06:00: Sodium 138, Potassium 3.4 L, Chloride 103, Carbon Dioxide 22, Anion Gap 16.4 H, BUN 17, Creatinine 1.19 H D, Estimated Creat Clear 64, Estimated GFR 50 L, Est GFR ( Amer) 60 D, Glucose 164 H, Calcium 9.1 I & O for Last 24 hours: Intake & Output 04/15/19 04/16/19 04/17/19 04/18/19 11:59 11:59 11:59 11:59 Intake Total 1999 Balance 1999 Weight 143 lb 7 oz Narrative: Patient is awake, alert. Oriented x3. Skin is dry but well perfused. She has multiple tattoos of varying quality on her arms and calf. No tattoos of recent vintage. Oropharynx clear, lots of smoke related and marijuana related halitosis. Lungs have good air movement. Clear air movement. Heart rate regular without murmurs. Abdomen is soft, tenderness throughout and mostly in the left upper flank, no rebound or guarding, no CVA tenderness. No distal edema or clubbing. Neurologically intact. Assessment and Plan (1) Abdominal pain Current visit: Yes Status: Acute Category: Medical Code(s): R10.9 - Unspecified abdominal pain Somewhat confusing picture. Repeat CT scan with contrast now that creatinine is improved. Surgical consultation. Hold on antibiotics at this point. Her leukocytosis is elevating, repeat blood cultures. Check stool PCR and culture given the bloody stool. I am curious about possibility of Campylobacter given her sudden onset of symptoms. (2) Bloody stool Current visit: Yes Status: Acute Category: Medical Code(s): K92.1 - Melena See notes above (3) Hypertension, essential Current visit: Yes Status: Acute Category: Medical Code(s): I10 - Essential (primary) hypertension Labetalol and nifedipine are doing well with her blood pressure at this point.
--- NOTE | 2019-04-18 08:53 | Consult Report ---
*Admission Date: 04/17/19 *Reason for consult:: Possible small bowel obstruction *History of present illness: This is a 43-year-old female seen in consultation from Dr. Anaya for evaluation regarding possible small bowel obstruction. She presented overnight to the emergency department with increasing abdominal pain. A CT scan revealed some dilated small bowel loops consistent with ileus versus obstruction. She states that she has continued to pass flatus. She developed what she describes as "bloody diarrhea" overnight. She continues to have sharp/crampy pain throughout the abdomen. Review of Systems - Constitutional Denies headache(s) - Eyes Denies change in vision - ENT Denies change in voice - *Cardiovascular Denies chest pain - *Respiratory Denies cough - *Gastrointestinal Reports abdominal pain Comments: One episode of "bloody diarrhea" overnight - *Genitourinary Denies painful urination - *Neurologic Denies abnormal walking, Denies fainting [facility] History Medical History: Reports:: Depression, Hypertension Denies:: Cancer, Diabetes Mellitus Type 1, Diabetes Mellitus Type 2, MRSA, Se izures *Have you ever received a pneumonia vaccine?: No *Have you received a flu vaccine this season?: Yes Other Medical History: Denies: Blood Transfusion Reaction Other Surgeries: Yes: Other (ECTOPIC ). 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) Meds Home Medications Medication Instructions Recorded Confirmed Type Fluoxetine HCl [Prozac] 10 mg PO DAILY 04/18/19 04/18/19 History Lisinopril/Hydrochlorothiazide 1 tab PO DAILY 04/18/19 04/18/19 History [Lisinopril-Hctz 20-25 mg Tab] Allergies Allergy/AdvReac Type Severity Reaction Status Date / Time No Known Allergies Allergy Verified 03/20/19 11:41 Exam Vital signs and Labs for Last 24 Hours: Temp Pulse Resp BP Pulse Ox 98.0 F 69 19 140/90 100 04/18/19 08:00 04/18/19 08:00 04/18/19 08:00 04/18/19 08:00 04/18/19 08:00 Laboratory Results - last 24 hr 04/17/19 22:09: WBC 15.3 H, RBC 4.07 L, Hgb 11.2 L, Hct 35.8 L, MCV 88.1, MCH 27.5, MCHC 31.2 L, RDW 14.1, Plt Count 602 H, MPV 6.7 L, Neut % (Auto) 63.5, Lymph % (Auto) 25.9, [place] % (Auto) 5.0, Eos % (Auto) 4.9, Baso % (Auto) 0.8, Neut # (Auto) 9.7 H, Lymph # (Auto) 4.0, [place] # (Auto) 0.8, Eos # (Auto) 0.8 H, Baso # (Auto) 0.1, Total Counted 100, Neutrophils % (Manual) 61, Lymphocytes % (Manual) 27, Monocytes % (Manual) 6, Eosinophils % (Manual) 5 H, Basophils % (Manual) 1.0, Platelet Estimate Normal, Anisocytosis 1+ 04/17/19 22:09: Sodium 138, Potassium 3.2 L, Chloride 101, Carbon Dioxide 27, Anion Gap 13.2, BUN 17, Creatinine 1.58 H, Estimated Creat Clear 48, Estimated GFR 36 L, Est GFR ( Amer) 44 L, Glucose 153 H, Calcium 8.9, Total Bilirubin 0.2, AST 16, ALT 18, Alkaline Phosphatase 73, Troponin I < 0.02, Total Protein 7.5, Albumin 3.5, Globulin 4.0 H, Albumin/Globulin Ratio 0.9 L 04/18/19 01:45: Urine Color Yellow, Urine Appearance Clear, Urine pH 6.5, Ur Specific [place] 1.025, Urine Protein 2+, Urine Glucose (UA) Negative, Urine Ketones Negative, Urine Blood 1+, Urine Nitrate Negative, Urine Bilirubin Negative, Urine Urobilinogen 0.2, Ur Leukocyte Esterase Negative, Urine WBC 3-5, Ur Squamous Epith Cells 5-10, Urine Bacteria 1+, Hyaline Casts Occasional, Urine Mucus 1+ 04/18/19 01:45: Urine HCG, Qual Negative 04/18/19 01:45: Urine Opiates Screen Negative, Urine Methadone Screen Negative, Ur Barbituates Screen Negative, Ur Phencyclidine Scrn Negative, Ur Amphetamines Screen Negative, U Benzodiazepines Scrn Negative, Urine Cocaine Screen Negative, U Marijuana (THC) Screen Positive H 04/18/19 06:00: WBC 20.4 H* D, RBC 4.02 L, Hgb 11.0 L, Hct 35.3 L, MCV 87.8, MCH 27.2, MCHC 31.0 L, RDW 14.2, Plt Count 483 H, MPV 6.6 L, Neut % (Auto) 91.6 H, Lymph % (Auto) 5.2 L, [place] % (Auto) 2.9, Eos % (Auto) 0.1, Baso % (Auto) 0.2, Neut # (Auto) 18.7 H, Lymph # (Auto) 1.1, [place] # (Auto) 0.6, Eos # (Auto) 0.0, Baso # (Auto) 0.0 04/18/19 06:00: Sodium 138, Potassium 3.4 L, Chloride 103, Carbon Dioxide 22, Anion Gap 16.4 H, BUN 17, Creatinine 1.19 H D, Estimated Creat Clear 64, Es timated GFR 50 L, Est GFR ( Amer) 60 D, Glucose 164 H, Calcium 9.1 I & O for Last 24 hours: Intake & Output 04/15/19 04/16/19 04/17/19 04/18/19 11:59 11:59 11:59 11:59 Intake Total 1999 Balance 1999 Weight 143 lb 7 oz - Constitutional no acute distress - *Routine Respiratory Exam Absent: respiratory distress - *Routine Cardiovascular Exam Present: RRR - *Routine Abdominal Exam Present: soft, tenderness. Absent: distended, rebound, guarding Results - Labs 04/18/19 06:00 04/18/19 06:00 Laboratory Results - last 24 hr 04/17/19 22:09: WBC 15.3 H, RBC 4.07 L, Hgb 11.2 L, Hct 35.8 L, MCV 88.1, MCH 27.5, MCHC 31.2 L, RDW 14.1, Plt Count 602 H, MPV 6.7 L, Neut % (Auto) 63.5, Lymph % (Auto) 25.9, [place] % (Auto) 5.0, Eos % (Auto) 4.9, Baso % (Auto) 0.8, Neut # (Auto) 9.7 H, Lymph # (Auto) 4.0, [place] # (Auto) 0.8, Eos # (Auto) 0.8 H, Baso # (Auto) 0.1, Total Counted 100, Neutrophils % (Manual) 61, Lymphocytes % (Manual) 27, Monocytes % (Manual) 6, Eosinophils % (Manual) 5 H, Basophils % (Manual) 1.0, Platelet Estimate Normal, Anisocytosis 1+ 04/17/19 22:09: Sodium 138, Potassium 3.2 L, Chloride 101, Carbon Dioxide 27, Anion Gap 13.2, BUN 17, Creatinine 1.58 H, Estimated Creat Clear 48, Estimated GFR 36 L, Est GFR ( Amer) 44 L, Glucose 153 H, Calcium 8.9, Total Bilirubin 0.2, AST 16, ALT 18, Alkaline Phosphatase 73, Troponin I < 0.02, Total Protein 7.5, Albumin 3.5, Globulin 4.0 H, Albumin/Globulin Ratio 0.9 L 04/18/19 01:45: Urine Color Yellow, Urine Appearance Clear, Urine pH 6.5, Ur Specific [place] 1.025, Urine Protein 2+, Urine Glucose (UA) Negative, Urine Ketones Negative, Urine Blood 1+, Urine Nitrate Negative, Urine Bilirubin Negative, Urine Urobilinogen 0.2, Ur Leukocyte Esterase Negative, Urine WBC 3-5, Ur Squamous Epith Cells 5-10, Urine Bacteria 1+, Hyaline Casts Occasional, Urine Mucus 1+ 04/18/19 01:45: Urine HCG, Qual Negative 04/18/19 01:45: Urine Opiates Screen Negative, Urine Methadone Screen Negative, Ur Barbituates Screen Negative, Ur Phencyclidine Scrn Negative, Ur Amphetamines Screen Negative, U Benzodiazepines Scrn Negative, Urine Cocaine Screen Negative, U Marijuana (THC) Screen Positive H 04/18/19 06:00: WBC 20.4 H* D, RBC 4.02 L, Hgb 11.0 L, Hct 35.3 L, MCV 87.8, MCH 27.2, MCHC 31.0 L, RDW 14.2, Plt Count 483 H, MPV 6.6 L, Neut % (Auto) 91.6 H, Lymph % (Auto) 5.2 L, [place] % (Auto) 2.9, Eos % (Auto) 0.1, Baso % (Auto) 0.2, Neut # (Auto) 18.7 H, Lymph # (Auto) 1.1, [place] # (Auto) 0.6, Eos # (Auto) 0.0, Baso # (Auto) 0.0 04/18/19 06:00: Sodium 138, Potassium 3.4 L, Chloride 103, Carbon Dioxide 22, Anion Gap 16.4 H, BUN 17, Creatinine 1.19 H D, Estimated Creat Clear 64, Estima [place] GFR 50 L, Est GFR ( Amer) 60 D, Glucose 164 H, Calcium 9.1 Assessment and Plan (1) Abdominal pain Current visit: Yes Status: Acute Category: Medical Code(s): R10.9 - Unspecified abdominal pain Radiographic evidence consistent with ileus versus early/partial obstruction. Her clinical presentation is more consistent with enterocolitis of undetermined etiology; however, an atypical presentation/early obstruction remains a possibility. No need for emergent surgical intervention at this time. She does have a repeat CT scan (with contrast) and a diarrhea panel that are pending. Serial abdominal exams will continue. Follow-up repeat CT scan. Follow-up diarrhea panel. (2) Bloody stool Current visit: Yes Status: Acute Category: Medical Code(s): K92.1 - Melena (3) Hypertension, essential Current visit: Yes Status: Acute Category: Medical Code(s): I10 - Essential (primary) hypertension
--- NOTE | 2019-04-18 17:40 | Electrocardiograph Report ---
APPROVED REPORT Exam: Resting ECG HR:57 bpm ECG Measurements Heart Rate 57 AXES [place] 116 P 60 QRSd 98 QRS 93 QT 468 T84 QTc 455 <Conclusion> Sinus bradycardia Rightward axis Borderline ECG Electronically signed by : Yasir Anaya, 04/18/2019 17:39:41
[2019-04-19 07:37] LABS: Basophils % 0.1 % (0.1-2.0); Eosinophils % 0.1 % (0.1-12.0); Hematocrit 37.7 % (37.0-47.0); Hemoglobin 12.1 g/dL (12.2-16.2); Lymphocytes # 1.2 K/mm3 (0.7-4.5); Lymphocytes % 4.4 % (10-50); Mean Corpuscular Volume 86.6 fl (81-99); Mean Platelet Volume 6.7 fl (7.4-10.4); Monocytes # 1.4 K/mm3 (0.1-1.0); Monocytes % 5.1 % (1.7-9.3); Neutrophils # 24.7 K/mm3 (1.8-7.8); Neutrophils % 90.2 % (37.0-80.0); Platelet Count 460 K/mm3 (142-424); Red Blood Count 4.36 M/mm3 (4.20-5.40); Red Cell Distribution Width 14.5 % (11.5-17.5); White Blood Count 27.4 K/mm3 (4.8-10.8)
[2019-04-19 07:53] LABS: Albumin Level 3.3 gm/dL (3.4-5.0); Albumin/Globulin Ratio 0.8 (1.1-1.8); Bilirubin,Total 0.3 mg/dL (0.2-1.0); Calcium 9.1 mg/dL (8.5-10.1); Globulin 4.1 gm/dl (1.3-3.2); Total Protein,Serum 7.4 gm/dL (6.4-8.2)
[2019-04-19 08:01] LABS: Lymphocytes % 4 % (10-50); Monocytes % 6 % (2-9); Neutrophils % 90 % (42-76); RBC Morphology Normal; Total Cells Counted 100
--- NOTE | 2019-04-19 08:42 | Progress Note ---
Internal Medicine - PN: Subj *Date: 04/19/19 *Time: 08:40 Interval history: Patient felt much better overnight after the initiation of IV Haldol which helped her abdominal cramping and pain. She is thirsty this morning. Exam Vital signs and Labs for Last 24 Hours: Temp Pulse Resp BP Pulse Ox 99.1 F 80 16 111/63 100 04/19/19 07:37 04/19/19 07:37 04/19/19 07:37 04/19/19 07:37 04/19/19 07:37 Laboratory Results - last 24 hr 04/18/19 08:20: Stl Aeromonas (PCR) Not detected, Stl C. cayetanensis PCR Not detected, Stool Rotavirus (PCR) Not detected, Stl Adenov F 40/41 PCR Not detected, Stool Astrovirus (PCR) Not detected, Stool Campylobacter PCR Not detected, Stl C.difficile Tox PCR Not detected, Stool Cryptosporidium PCR Not detected, Stl E.coli Shiga Tox PCR Not detected, Stool E coli O157 PCR Not detected, Stl Enterotoxigenic E PCR Not detected, Stool EPEC (PCR) Not detected, Stool EAEC (PCR) Not detected, Stl E. histolytica PCR Not detected, Stool Giardia Lamblia PCR Not detected, Stool Salmonella PCR Not detected, Stool Sapovirus (PCR) Not detected, Stl P. shigelloides PCR Not detected, Stl Shigella/EIEC PCR Not detected, St Y.enterocolitica PCR Not detected, Stool Vibrio (PCR) Not detected, Stl Vibrio cholerae PCR Not detected, Stl Norovirus GI/GII PCR Not detected 04/19/19 06:10: WBC 27.4 H* D, RBC 4.36, Hgb 12.1 L, Hct 37.7, MCV 86.6, MCH 27.7, MCHC 32.0, RDW 14.5, Plt Count 460 H, MPV 6.7 L, Neut % (Auto) 90.2 H, Lymph % (Auto) 4.4 L, [place] % (Auto) 5.1, Eos % (Auto) 0.1, Baso % (Auto) 0.1, Neut # (Auto) 24.7 H, Lymph # (Auto) 1.2, [place] # (Auto) 1.4 H, Eos # (Auto) 0.0, Baso # (Auto) 0.0, Total Counted 100, Neutrophils % (Manual) 90 H, Lymphocytes % (Manual) 4 L, Monocytes % (Manual) 6, Platelet Estimate Slight increase, RBC Morphology Normal 04/19/19 06:10: Sodium 132 L, Potassium 3.0 L, Chloride 97 L, Carbon Dioxide 24, Anion Gap 14.0, BUN 15, Creatinine 1.10 H, Estimated Creat Clear 69, Estimated GFR 55 L, Est GFR ( Amer) 66, Glucose 130 H, Calcium 9.1, Total Bilirubin 0.3, AST 15, ALT 18, Alkaline Phosphatase 79, Total Protein 7.4, Albumin 3.3 L, Globulin 4.1 H, Albumin/Globulin Ratio 0.8 L I & O for Last 24 hours: Intake & Output 04/16/19 04/17/19 04/18/19 04/19/19 11:59 11:59 11:59 11:59 Intake Total 1999 2413 / 2413 Output Total 150 / 150 Balance 1999 2263 / 2263 Weight 143 lb 7 oz 143 lb 9 oz Narrative: Patient is alert. Oriented x3. Feels much better. Oropharynx dry but clear. Lungs have smoker's rhonchi. Heart rate regular. Abdomen is soft, minimally tender but markedly improved over baseline exam yesterday. Extremities are dry but well perfused. To move all extremities, cranial nerves intact Assessment and Plan (1) Abdominal pain Current visit: Yes Status: Acute Category: Medical Code(s): R10.9 - Unspecified abdominal pain (2) Bloody stool Current visit: Yes Status: Acute Category: Medical Code(s): K92.1 - Melena (3) Hypertension, essential Current visit: Yes Status: Acute Category: Medical Code(s): I10 - Essential (primary) hypertension (4) Leukocytosis Current visit: Yes Status: Acute Category: Medical Code(s): D72.829 - Elevated white blood cell count, unspecified Patient clinically seems to be improving. White count has elevated. Plan will be to check urine culture from a cath specimen, blood cultures. Follow blood counts tomorrow. I do not wish to start antibiotics as patient is afebrile and I do not have a source of an infectious etiology of leukocytosis. Stool PCR negative. Stool cultures testing for Salmonella/Shigella are pending. Advance diet today as tolerated. Replace potassium orally for her mild hypokalemia. (5) Hypokalemia Current visit: Yes Status: Acute Category: Medical Code(s): E87.6 - Hypokalemia
--- NOTE | 2019-04-19 10:05 | Progress Note ---
Subjective Patient reports: feels better, still having pain, no flatus, no bowel movement (Since episode of diarrhea over 24 hours ago) Narrative: She states that she is "much better overall". She still has some abdominal pain; however, severity is significantly less. Exam Vital signs and Labs for Last 24 Hours: Temp Pulse Resp BP Pulse Ox 99.1 F 80 16 111/63 100 04/19/19 07:37 04/19/19 07:37 04/19/19 07:37 04/19/19 07:37 04/19/19 07:37 Laboratory Results - last 24 hr 04/18/19 08:20: Stl Aeromonas (PCR) Not detected, Stl C. cayetanensis PCR Not detected, Stool Rotavirus (PCR) Not detected, Stl Adenov F 40/41 PCR Not d etected, Stool Astrovirus (PCR) Not detected, Stool Campylobacter PCR Not detected, Stl C.difficile Tox PCR Not detected, Stool Cryptosporidium PCR Not detected, Stl E.coli Shiga Tox PCR Not detected, Stool E coli O157 PCR Not detected, Stl Enterotoxigenic E PCR Not detected, Stool EPEC (PCR) Not detected, Stool EAEC (PCR) Not detected, Stl E. histolytica PCR Not detected, Stool Giardia Lamblia PCR Not detected, Stool Salmonella PCR Not detected, Stool Sapovirus (PCR) Not detected, Stl P. shigelloides PCR Not detected, Stl Shigella/EIEC PCR Not detected, St Y.enterocolitica PCR Not detected, Stool Vibrio (PCR) Not detected, Stl Vibrio cholerae PCR Not detected, Stl Norovirus GI/GII PCR Not detected 04/19/19 06:10: WBC 27.4 H* D, RBC 4.36, Hgb 12.1 L, Hct 37.7, MCV 86.6, MCH 27.7, MCHC 32.0, RDW 14.5, Plt Count 460 H, MPV 6.7 L, Neut % (Auto) 90.2 H, Lymph % (Auto) 4.4 L, [place] % (Auto) 5.1, Eos % (Auto) 0.1, Baso % (Auto) 0.1, Neut # (Auto) 24.7 H, Lymph # (Auto) 1.2, [place] # (Auto) 1.4 H, Eos # (Auto) 0.0, Baso # (Auto) 0.0, Total Counted 100, Neutrophils % (Manual) 90 H, Lymphocytes % (Manual) 4 L, Monocytes % (Manual) 6, Platelet Estimate Slight increase, RBC Morphology Normal 04/19/19 06:10: Sodium 132 L, Potassium 3.0 L, Chloride 97 L, Carbon Dioxide 24, Anion Gap 14.0, BUN 15, Creatinine 1.10 H, Estimated Creat Clear 69, Estimated GFR 55 L, Est GFR ( Amer) 66, Glucose 130 H, Calcium 9.1, Total Bilirubin 0.3, AST 15, ALT 18, Alkaline Phosphatase 79, Total Protein 7.4, Albumin 3.3 L, Globulin 4.1 H, Albumin/Globulin Ratio 0.8 L I & O for Last 24 hours: Intake & Output 04/16/19 04/17/19 04/18/19 04/19/19 11:59 11:59 11:59 11:59 Intake Total 1999 2413 / 2413 Output Total 150 / 150 Balance 1999 2263 / 2263 Weight 143 lb 7 oz 143 lb 9 oz Radiology Reports for the Last 24 Hours: Flat and upright films this morning reveal no sign of obstruction - Constitutional no acute distress - *Routine Respiratory Exam Absent: respiratory distress - *Routine Cardiovascular Exam Present: RRR - *Routine Abdominal Exam Present: soft, tenderness. Absent: distended, rebound, guarding Comments: Improved Progress Note: A&P (1) Abdominal pain Status: Acute Assessment and plan: No definitive etiology determined as of yet. No definite evidence of obstruction and no definite evidence of bacterial infectious etiology. Continue management as per primary service Continue serial abdominal exams Current Visit: Yes (2) Bloody stool Status: Acute Current Visit: Yes (3) Hypertension, essential Status: Acute Current Visit: Yes (4) Leukocytosis Status: Acute Current Visit: Yes (5) Hypokalemia Status: Acute Current Visit: Yes
[2019-04-20 05:49] LABS: Basophils % 0.1 % (0.1-2.0); Eosinophils # 0.2 K/mm3 (0.0-0.4); Eosinophils % 0.9 % (0.1-12.0); Hematocrit 33.5 % (37.0-47.0); Lymphocytes # 1.4 K/mm3 (0.7-4.5); Lymphocytes % 5.3 % (10-50); Mean Corpuscular Volume 86.7 fl (81-99); Mean Platelet Volume 6.7 fl (7.4-10.4); Monocytes # 1.3 K/mm3 (0.1-1.0); Monocytes % 5.1 % (1.7-9.3); Neutrophils % 88.5 % (37.0-80.0); Platelet Count 411 K/mm3 (142-424); Red Blood Count 3.86 M/mm3 (4.20-5.40); Red Cell Distribution Width 14.7 % (11.5-17.5)
[2019-04-20 05:50] LABS: Hemoglobin 10.7 g/dL (12.2-16.2)
[2019-04-20 05:54] LABS: Anion Gap 14.3 mEq/L (5-15); Calcium 9.1 mg/dL (8.5-10.1)
[2019-04-20 06:08] LABS: Lymphocytes % 6 % (10-50); Monocytes % 1 % (2-9); Neutrophils % 85 % (42-76); RBC Morphology Normal; Total Cells Counted 100
--- NOTE | 2019-04-20 08:33 | Progress Note ---
Internal Medicine - PN: Subj *Date: 04/20/19 *Time: 08:32 Interval history: Patient feels a little better, is mildly nauseated when she eats Jell-O. Urine culture from cath specimen and blood culture from yesterday still pending. Patient's white count slightly lower today. Minimal diarrhea today. Exam Vital signs and Labs for Last 24 Hours: Temp Pulse Resp BP Pulse Ox 99.3 F 90 17 109/60 L 98 04/20/19 04:00 04/20/19 04:00 04/20/19 04:00 04/20/19 04:00 04/20/19 07:56 Laboratory Results - last 24 hr 04/20/19 05:40: WBC 26.0 H*, RBC 3.86 L, Hgb 10.7 L D, Hct 33.5 L, MCV 86.7, MCH 27.7, MCHC 32.0, RDW 14.7, Plt Count 411, MPV 6.7 L, Neut % (Auto) 88.5 H, Lymph % (Auto) 5.3 L, [place] % (Auto) 5.1, Eos % (Auto) 0.9, Baso % (Auto) 0.1, Neut # (Auto) 23.0 H, Lymph # (Auto) 1.4, [place] # (Auto) 1.3 H, Eos # (Auto) 0.2, Baso # (Auto) 0.0, Total Counted 100, Neutrophils % (Manual) 85 H, Band Neutrophils % 8.0, Lymphocytes % (Manual) 6 L, Monocytes % (Manual) 1 L, Platelet Estimate Normal, RBC Morphology Normal 04/20/19 05:40: Sodium 135 L, Potassium 3.3 L, Chloride 98, Carbon Dioxide 26, Anion Gap 14.3, BUN 12, Creatinine 1.06 H, Estimated Creat Clear 72, Estimated GFR 57 L, Est GFR ( Amer) 69, Glucose 128 H, Calcium 9.1 I & O for Last 24 hours: Intake & Output 04/17/19 04/18/19 04/19/19 04/20/19 11:59 11:59 11:59 11:59 Intake Total 1999 2413 / 2413 3385 / 3385 Output Total 150 / 150 Balance 1999 2263 / 2263 3385 / 3385 Weight 143 lb 7 oz 143 lb 9 oz 143 lb 9.005 oz Narrative: Patient looks better clinically. Sitting up in the bed. Lungs are clear. No scleral icterus. No JVD. Oropharynx clear. Heart rate regular. Abdomen softer, still diffusely tender. No extremity edema noted. Assessment and Plan (1) Abdominal pain Current visit: Yes Status: Acute Category: Medical Code(s): R10.9 - Unspecified abdominal pain (2) Bloody stool Current visit: Yes Status: Acute Category: Medical Code(s): K92.1 - Melena (3) Hypertension, essential Current visit: Yes Status: Acute Category: Medical Code(s): I10 - Essential (primary) hypertension (4) Leukocytosis Current visit: Yes Status: Acute Category: Medical Code(s): D72.829 - Elevated white blood cell count, unspecified (5) Hypokalemia Current visit: Yes Status: Acute Category: Medical Code(s): E87.6 - Hypokalemia - Assessment and plan all Dx Assessment and Plan for all problems:: Very unusual picture of a probable viral colitis with leukocytosis. I still see no indication for bacterial treatment given improvement with supportive care, lack of high spiking fever and negative PCR testing. If she has another episode of diarrhea will repeat PCR testing. Clinically she reminds me of Campylobacter but I do not see a role for treatment at this point unless we have a positive PCR test. Haldol has been helpful for her nausea and vomiting. This will continue. Try to advance to clear liquids. Obviously we will watch cultures.
--- NOTE | 2019-04-20 09:47 | Progress Note ---
Subjective Patient reports: no new complaints (Feels slightly better. Some nausea.) Exam Vital signs and Labs for Last 24 Hours: Temp Pulse Resp BP Pulse Ox 98.9 F 88 15 120/80 99 04/20/19 08:00 04/20/19 08:00 04/20/19 08:00 04/20/19 08:00 04/20/19 08:00 Laboratory Results - last 24 hr 04/20/19 05:40: WBC 26.0 H*, RBC 3.86 L, Hgb 10.7 L D, Hct 33.5 L, MCV 86.7, MCH 27.7, MCHC 32.0, RDW 14.7, Plt Count 411, MPV 6.7 L, Neut % (Auto) 88.5 H, Lymph % (Auto) 5.3 L, Owen % (Auto) 5.1, Eos % (Auto) 0.9, Baso % (Auto) 0.1, Neut # (Auto) 23.0 H, Lymph # (Auto) 1.4, Owen # (Auto) 1.3 H, Eos # (Auto) 0.2, Baso # (Auto) 0.0, Total Counted 100, Neutrophils % (Manual) 85 H, Band Neutrophils % 8.0, Lymphocytes % (Manual) 6 L, Monocytes % (Manual) 1 L, Platelet Estimate Normal, RBC Morphology Normal 04/20/19 05:40: Sodium 135 L, Potassium 3.3 L, Chloride 98, Carbon Dioxide 26, Anion Gap 14.3, BUN 12, Creatinine 1.06 H, Estimated Creat Clear 72, Estimated GFR 57 L, Est GFR ( Amer) 69, Glucose 128 H, Calcium 9.1 I & O for Last 24 hours: Intake & Output 04/17/19 04/18/19 04/19/19 04/20/19 11:59 11:59 11:59 11:59 Intake Total 1999 2413 / 2413 3505 / 3505 Output Total 150 / 150 300 / 300 Balance 1999 2263 / 2263 3205 / 3205 Weight 143 lb 7 oz 143 lb 9 oz 143 lb 9.005 oz - Constitutional no acute distress - *Routine Respiratory Exam Absent: respiratory distress - *Routine Abdominal Exam Present: soft Progress Note: A&P (1) Abdominal pain Status: Acute Assessment and plan: She continues to slowly improve. Her white blood cell count remains quite elevated. Viral enterocolitis remains a fairly likely causative factor; however, this could certainly represent Campylobacter. I agree with the single dose of azithromycin that has been ordered by primary care. If the patient has a slight to moderate response consideration of 2 additional doses will be ongoing. If she has absolutely no response or an exceptional response the single dose is likely all that is warranted. Current Visit: Yes (2) Bloody stool Status: Acute Current Visit: Yes (3) Hypertension, essential Status: Acute Current Visit: Yes (4) Leukocytosis Status: Acute Current Visit: Yes (5) Hypokalemia Status: Acute Current Visit: Yes
[2019-04-21 05:52] LABS: Basophils % 0.1 % (0.1-2.0); Eosinophils # 0.2 K/mm3 (0.0-0.4); Eosinophils % 0.5 % (0.1-12.0); Hematocrit 32.5 % (37.0-47.0); Hemoglobin 10.4 g/dL (12.2-16.2); Lymphocytes # 1.6 K/mm3 (0.7-4.5); Mean Corpuscular Volume 86.7 fl (81-99); Mean Platelet Volume 7.1 fl (7.4-10.4); Monocytes # 1.3 K/mm3 (0.1-1.0); Monocytes % 4.8 % (1.7-9.3); Neutrophils # 23.7 K/mm3 (1.8-7.8); Neutrophils % 88.6 % (37.0-80.0); Platelet Count 381 K/mm3 (142-424); Red Blood Count 3.74 M/mm3 (4.20-5.40); Red Cell Distribution Width 14.7 % (11.5-17.5)
[2019-04-21 06:10] LABS: White Blood Count 26.8 K/mm3 (4.8-10.8)
[2019-04-21 06:28] LABS: Albumin Level 2.5 gm/dL (3.4-5.0); Albumin/Globulin Ratio 0.6 (1.1-1.8); Anion Gap 14.1 mEq/L (5-15); Bilirubin,Total 0.3 mg/dL (0.2-1.0); Calcium 9.1 mg/dL (8.5-10.1); Globulin 4.2 gm/dl (1.3-3.2); Total Protein,Serum 6.7 gm/dL (6.4-8.2)
--- NOTE | 2019-04-21 08:00 | Progress Note ---
Internal Medicine - PN: Subj *Date: 04/21/19 *Time: 07:59 Interval history: Patient is felt somewhat better, has been able to go through the night with much lower doses of pain medication. No vomiting. No loose stools. Is keeping liquids down but somewhat nauseated. Exam Vital signs and Labs for Last 24 Hours: Temp Pulse Resp BP Pulse Ox 99.1 F 97 H 18 135/79 98 04/21/19 04:00 04/21/19 04:00 04/21/19 04:00 04/21/19 04:00 04/21/19 04:00 Laboratory Results - last 24 hr 04/21/19 05:37: WBC 26.8 H*, RBC 3.74 L, Hgb 10.4 L, Hct 32.5 L, MCV 86.7, MCH 27.8, MCHC 32.0, RDW 14.7, Plt Count 381, MPV 7.1 L, Neut % (Auto) 88.6 H, Lymph % (Auto) 6.0 L, George % (Auto) 4.8, Eos % (Auto) 0.5, Baso % (Auto) 0.1, Neut # (Auto) 23.7 H, Lymph # (Auto) 1.6, George # (Auto) 1.3 H, Eos # (Auto) 0.2, Baso # (Auto) 0.0 04/21/19 05:37: Sodium 135 L, Potassium 3.1 L, Chloride 99, Carbon Dioxide 25, Anion Gap 14.1, BUN 11, Creatinine 0.90, Estimated Creat Clear 82, Estimated GFR 69, Est GFR ( Amer) 83 D, Glucose 121 H, Calcium 9.1, Total Bilirubin 0.3, AST 7 L D, ALT 14, Alkaline Phosphatase 84, Total Protein 6.7, Albumin 2.5 L, Globulin 4.2 H, Albumin/Globulin Ratio 0.6 L I & O for Last 24 hours: Intake & Output 04/18/19 04/19/19 04/20/19 04/21/19 11:59 11:59 11:59 11:59 Intake Total 1999 2413 / 2413 3505 / 3505 3819 / 3819 Output Total 150 / 150 300 / 300 Balance 1999 2263 / 2263 3205 / 3205 3819 / 3819 Weight 143 lb 7 oz 143 lb 9 oz 143 lb 9.005 oz 139 lb Microbiology Reports for the Last 24 Hours: Microbiology 04/19/19 16:00 Urine,Catheterized Urine Culture - Preliminary Narrative: Alert. Pleasant. Looks like she feels better. No scleral icterus, no jaundice. Lungs have good air movement. Abdomen soft, much less tenderness. Heart rate regular. No edema. Assessment and Plan (1) Abdominal pain Current visit: Yes Status: Acute Category: Medical Code(s): R10.9 - Unspecified abdominal pain (2) Bloody stool Current visit: Yes Status: Acute Category: Medical Code(s): K92.1 - Melena (3) Hypertension, essential Current visit: Yes Status: Acute Category: Medical Code(s): I10 - Essential (primary) hypertension (4) Leukocytosis Current visit: Yes Status: Acute Category: Medical Code(s): D72.829 - Elevated white blood cell count, unspecified (5) Hypokalemia Current visit: Yes Status: Acute Category: Medical Code(s): E87.6 - Hypokalemia - Assessment and plan all Dx Assessment and Plan for all problems:: Improving. We will feed breakfast this morning. If tolerates this well consider discharge home with follow-up of leukocytosis as an outpatient
[2019-04-21 08:12] VITALS: BP 103/55
[2019-04-21 08:30] LABS: Eosinophils % 1 % (0-3); Lymphocytes % 3 % (10-50); Monocytes % 8 % (2-9); Neutrophils % 84 % (42-76); RBC Morphology Normal; Total Cells Counted 100
--- NOTE | 2019-04-21 08:40 | Discharge Summary ---
General - General Admission date:: 04/18/19 Discharge date: 04/21/19 HPI HPI: 43-year-old white female, 5 weeks from an uncomplicated vaginal delivery, who was at home in her normal state of health, bottlefeeding her infant when she suddenly at 9:00 last night had the onset of severe abdominal pain and thought "I was going to ." She had her family check her blood pressure which was low, and then she had the onset of vomiting. Came to the emergency department where she was found to be hypertensive. Had minimal leukocytosis noted, evidence of mild dehydration with acute kidney injury, and was admitted to hospital after CT scan without p.o. or IV contrast showed evidence of small bowel obstruction. Overnight she has had one episode of diarrhea that she states has blood in it. She denies recent surgical history, recent diarrhea or vomiting. Recent medication changes. Recent diarrhea or unusual exposure to uncooked food or poor water sources. She denies that any of her family members have been ill with GI illnesses. Hospital Course Hospital Course: Patient was admitted, developed a leukocytosis. Blood and urine cultures were obtained x2 sets each, these were negative at the time of discharge. Patient did not spike high-grade fevers. Patient responded well to pain medication, antiemetics and improved clinically. Her leukocytosis remained concerning. CT scan was repeated with contrast which revealed no evidence of small bowel obstruction and her diarrhea symptoms improved. PCR testing in the stool was negative. This morning patient was able to eat a low-fat diet, she will be discharged home. Given the clinical similarity of her disease to Campylobacter she will be placed on azithromycin. I will follow her up closely in the office and repeat white blood cell count as an outpatient. Objective Vital signs: Temp Pulse Resp BP Pulse Ox 98.6 F 86 16 103/55 L 100 04/21/19 08:00 04/21/19 08:00 04/21/19 08:00 04/21/19 08:00 04/21/19 08:00 Narrative: Patient is alert. Pleasant. Talkative. No scleral icterus. Lungs clear. Abdomen soft and normal bowel sounds. Some tenderness in the epigastric area. Heart rate regular. No edema noted. Good distal pulses. Neurologic exam nonfocal. Results Labs on day of discharge: Labs from last 24 hours 04/21/19 04/21/19 05:37 05:37 WBC 26.8 H* RBC 3.74 L Hgb 10.4 L Hct 32.5 L MCV 86.7 MCH 27.8 MCHC 32.0 RDW 14.7 Plt Count 381 MPV 7.1 L Neut % (Auto) 88.6 H Lymph % (Auto) 6.0 L Craig % (Auto) 4.8 Eos % (Auto) 0.5 Baso % (Auto) 0.1 Neut # (Auto) 23.7 H Lymph # (Auto) 1.6 Craig # (Auto) 1.3 H Eos # (Auto) 0.2 Baso # (Auto) 0.0 Total Counted 100 Neutrophils % (Manual) 84 H Band Neutrophils % 4.0 Lymphocytes % (Manual) 3 L Monocytes % (Manual) 8 Eosinophils % (Manual) 1 Platelet Estimate Normal RBC Morphology Normal Sodium 135 L Potassium 3.1 L Chloride 99 Carbon Dioxide 25 Anion Gap 14.1 BUN 11 Creatinine 0.90 Estimated Creat Clear 82 Estimated GFR 69 Est GFR ( Amer) 83 D Glucose 121 H Calcium 9.1 Total Bilirubin 0.3 AST 7 L D ALT 14 Alkaline Phosphatase 84 Total Protein 6.7 Albumin 2.5 L Globulin 4.2 H Albumin/Globulin Ratio 0.6 L Preliminary micro results at discharge 04/19/19 16:00 Urine Culture - Preliminary Urine,Catheterized DS: Diagnosis - Discharge Diagnosis (1) Abdominal pain Status: Resolved (2) Bloody stool Status: Resolved (3) Hypertension, essential Status: Chronic (4) Leukocytosis Status: Acute (5) Hypokalemia Status: Acute Discharge Plan - Patient Discharge Instructions ACTIVITY: Continue current activity DIET: low fat, low cholesterol Patient Instructions: Small Bowel Obstruction, DI for Small Bowel Obstruction - Follow up Plan Follow up with: Yasir Anaya MD [Primary Care Provider] - 04/25/19 Disposition: Home, [facility] Medications: Home Medications Medication Instructions Recorded Confirmed Type Fluoxetine HCl [Prozac] 10 mg PO DAILY 04/18/19 04/18/19 History Azithromycin [Zithromax 250mg 250 mg PO DIRECTED #6 tab 04/21/19 Rx tab] Labetalol HCl [Normodyne 100mg 300 mg PO BID #60 tab 04/21/19 Rx tablet] NIFEdipine [Nifedipine ER] 30 mg PO DAILY #30 tablet.er 04/21/19 Rx Nicotine [Nicoderm 21mg/24hr 21 mg TD DAILY #30 patch.td24 04/21/19 Rx patch] Prescriptions/Medication Reconciliation: New Azithromycin [Zithromax 250mg tab] 250 mg PO DIRECTED #6 tab Labetalol HCl [Normodyne 100mg tablet] 300 mg PO BID #60 tab NIFEdipine [Procardia XL 30mg Tablet] 60 mg PO DAILY 30 Days tablet.er Continued Fluoxetine HCl [Prozac] 10 mg PO DAILY Discontinued Lisinopril/Hydrochlorothiazide [Lisinopril-Hctz 20-25 mg Tab] 1 tab PO DAILY - Problem Reconciliation Problems Reviewed?: Yes
== END 2019-04-21 10:22 | disposition home or self-care (01) ==
LOC: ER 21:58 → 2ND 04-18 03:17 → INTOOBSV 04-18 04:29 → 2ND 04-18 04:29 → OBSVTOIN 04-18 04:29
PROVIDERS: ADMIT Family Medicine; ATTEND Internal Medicine Adolescent Medicine
CPT/HCPCS: 36415; 70450; 74021; 74022; 74176; 74178; 80048; 80053; 80305; 81001; 81025; 84484; 85007; 85025; 87040; 87045; 87086; 87088; 87186; 87507; 93005; 96365; 96366; 99284; G0378; J2405; Q9967

== ENCOUNTER 2019-04-24 11:19 | Inpatient (IN) ==
[2019-04-24 15:28] LABS: Basophils % 0.1 % (0.1-2.0); Eosinophils # 0.2 K/mm3 (0.0-0.4); Eosinophils % 0.7 % (0.1-12.0); Hematocrit 31.8 % (37.0-47.0); Hemoglobin 10.1 g/dL (12.2-16.2); Lymphocytes # 1.7 K/mm3 (0.7-4.5); Lymphocytes % 6.5 % (10-50); Mean Corpuscular HGB Conc 31.8 g/dL (31.8-35.4); Mean Platelet Volume 7.1 fl (7.4-10.4); Monocytes # 1.2 K/mm3 (0.1-1.0); Monocytes % 4.5 % (1.7-9.3); Neutrophils # 22.4 K/mm3 (1.8-7.8); Neutrophils % 88.2 % (37.0-80.0); Platelet Count 525 K/mm3 (142-424); Red Blood Count 3.69 M/mm3 (4.20-5.40); Red Cell Distribution Width 14.7 % (11.5-17.5); White Blood Count 25.4 K/mm3 (4.8-10.8)
[2019-04-24 15:37] LABS: Albumin Level 2.2 gm/dL (3.4-5.0); Albumin/Globulin Ratio 0.5 (1.1-1.8); Bilirubin,Total 0.4 mg/dL (0.2-1.0); Calcium 8.8 mg/dL (8.5-10.1); Globulin 4.8 gm/dl (1.3-3.2); Phosphorous 4.1 mg/dL (2.4-4.9)
--- NOTE | 2019-04-24 15:37 | Pharmacy Consult Notes ---
[facility] Pharmacy VTE Monitoring - Patient Demographics Admission date: 04/24/19 Report Date: 04/24/19 Time: 15:37 Allergies/Adverse Reactions: Patient Allergies No Known Allergies Allergy (Verified 03/20/19 11:41) Height: 1.63 m Weight: 67.755 kg - VTE Risk Labs: VTE Related Lab Results Hgb 10.1 g/dL (12.2-16.2) L 04/24/19 15:10 Hct 31.8 % (37.0-47.0) L 04/24/19 15:10 Plt Count 525 K/mm3 (142-424) H D 04/24/19 15:10 Was VTE Risk Assessment Performed: Yes VTE Score: 2 VTE Risk Level: Very Low Risk - Prophylaxis VTE Prophylaxis Ordered?: Yes Types of VTE Prophylaxis: TEDS Knee High Location of Applied Device: Bilateral Lower Extremeties - VTE Diagnosis Confirmed Treatment or plan recommended: Continue Current Treatment
--- NOTE | 2019-04-24 16:07 | Consult Report ---
*Admission Date: 04/24/19 *Reason for consult:: Enteritis versus bowel obstruction *History of present illness: This is a 43-year-old female who was recently hospitalized with increasing abdominal pain and intermittent diarrhea. She had some small bowel dilatation noted on her initial films that were felt to be consistent with possible enteritis versus early obstruction. Follow-up films improved with regard to the dilatation and her symptoms also slowly improved and she was discharged home with outpatient follow-up. She presented to her primary provider today with increasing abdominal pain and some distention. She states that she has passed "a little gas today". She also states that she had "a little diarrhea earlier". Review of Systems - Constitutional Denies fever(s) - Eyes Denies change in vision - ENT Denies change in voice - *Cardiovascular Denies chest pain - *Respiratory Denies cough - *Gastrointestinal Reports abdominal pain, Reports nausea - *Musculoskeletal Denies deformity - Integumentary/Breasts Denies lesions - *Neurologic Denies abnormal movements - Psychiatric Denies lack of enjoyment - Endocrine Denies cold intolerance - Hematologic/Lymphatic Denies easy bleeding [facility] History Medical History: Reports:: Depression, Hypertension Denies:: Cancer, Diabetes Mellitus Type 1, Diabetes Mellitus Type 2, MRSA, Seizures *Have you ever received a pneumonia vaccine?: No *Have you received a flu vaccine this season?: Yes Other Medical History: Denies: Blood Transfusion Reaction Other Surgeries: Yes: Other (ECTOPIC ). No: Amputation: No Fractures: No - *Social History Educational Level: Completed GED/General Educational Development Smoking Status: Current every day smoker Tobacco Type: cigarettes # Packs/Day (cigarettes): 2 Alcohol Intake: never Substance Use Type: marijuana *Occupational Status:: unemployed Housing: house Household Members: significant other, children *Travel in the last 8 weeks: None - Psychiatric History Expresses thoughts of harming self/others: None Suicide Plan Description: No Plan Pschychiatric History:: Reports:: Depression Family Hx:: No significant family history CLAIM PROFESSIONAL history: Additional CLAIM PROFESSIONAL History (Recent uncomplicated vaginal delivery) Meds Home Medications Medication Instructions Recorded Confirmed Type Fluoxetine HCl [Prozac] 10 mg PO DAILY 04/18/19 04/24/19 History Azithromycin [Zithromax 250mg 250 mg PO DIRECTED 04/24/19 04/24/19 History tab] Labetalol HCl [Normodyne 100mg 300 mg PO BID 04/24/19 04/24/19 History tablet] NIFEdipine [Nifedipine ER] 30 mg PO DAILY 04/24/19 04/24/19 History Nicotine [Nicoderm 21mg/24hr 21 mg TD DAILY 04/24/19 04/24/19 History patch] Allergies Allergy/AdvReac Type Severity Reaction Status Date / Time No Known Allergies Allergy Verified 03/20/19 11:41 Exam Vital signs and Labs for Last 24 Hours: Temp Pulse Resp BP Pulse Ox 98.8 F 93 H 18 120/65 98 04/24/19 14:30 04/24/19 14:30 04/24/19 14:30 04/24/19 14:30 04/24/19 14:30 Laboratory Results - last 24 hr 04/24/19 15:10: WBC 25.4 H*, RBC 3.69 L, Hgb 10.1 L, Hct 31.8 L, MCV 86.0, MCH 27.4, MCHC 31.8, RDW 14.7, Plt Count 525 H D, MPV 7.1 L, Neut % (Auto) 88.2 H, Lymph % (Auto) 6.5 L, [place] % (Auto) 4.5, Eos % (Auto) 0.7, Baso % (Auto) 0.1, Neut # (Auto) 22.4 H, Lymph # (Auto) 1.7, [place] # (Auto) 1.2 H, Eos # (Auto) 0.2, Baso # (Auto) 0.0 04/24/19 15:10: Sodium 130 L, Potassium 3.0 L, Chloride 94 L, Carbon Dioxide 23, Anion Gap 16.0 H, BUN 20 H, Creatinine 0.93, Estimated Creat Clear 85, Estimated GFR 66, Est GFR ( Amer) 80, Glucose 105, Calcium 8.8, Phosphorus 4.1, Magnesium 1.8, Total Bilirubin 0.4, AST 10 L, ALT 12, Alkaline Phosphatase 150 H , Total Protein 7.0, Albumin 2.2 L, Globulin 4.8 H, Albumin/Globulin Ratio 0.5 L I & O for Last 24 hours: Intake & Output 04/22/19 04/23/19 04/24/19 04/25/19 11:59 11:59 11:59 11:59 Weight 149 lb 6 oz - Constitutional no acute distress - *Routine Respiratory Exam Absent: respiratory distress - *Routine Cardiovascular Exam Present: RRR - *Routine Abdominal Exam Present: soft, tenderness, distended. Absent: rigid Results - Labs 04/24/19 15:10 04/24/19 15:10 Laboratory Results - last 24 hr 04/24/19 15:10: WBC 25.4 H*, RBC 3.69 L, Hgb 10.1 L, Hct 31.8 L, MCV 86.0, MCH 27.4, MCHC 31.8, RDW 14.7, Plt Count 525 H D, MPV 7.1 L, Neut % (Auto) 88.2 H, Lymph % (Auto) 6.5 L, [place] % (Auto) 4.5, Eos % (Auto) 0.7, Baso % (Auto) 0.1, Neut # (Auto) 22.4 H, Lymph # (Auto) 1.7, [place] # (Auto) 1.2 H, Eos # (Auto) 0.2, Baso # (Auto) 0.0 04/24/19 15:10: Sodium 130 L, Potassium 3.0 L, Chloride 94 L, Carbon Dioxide 23, Anion Gap 16.0 H, BUN 20 H, Creatinine 0.93, Estimated Creat Clear 85, Estimated GFR 66, Est GFR ( Amer) 80, Glucose 105, Calcium 8.8, Phosphorus 4.1, Magnesium 1.8, Total Bilirubin 0.4, AST 10 L, ALT 12, Alkaline Phosphatase 150 H , Total Protein 7.0, Albumin 2.2 L, Globulin 4.8 H, Albumin/Globulin Ratio 0.5 L - Imaging CT scan - abdomen: report reviewed, image reviewed CT scan - pelvis: report reviewed, image reviewed (I have reviewed the patient's most recent CT scan with radiology. No transition point consistent with obstruction is noted. Although a partial obstruction has not been and cannot be completely ruled out, the entirety of radiographic findings are much more consistent with severe enteritis.) Assessment and Plan (1) Enteritis Current visit: Yes Status: Acute Category: Medical Code(s): K52.9 - Noninfective gastroenteritis and colitis, unspecified Enteritis versus possible partial bowel obstruction. The patient continues to have intermittent diarrhea and intermittent flatus. She does have some abdominal distention and fairly severe abdominal pain; however, her physical exam findings and radiographic evidence of much more consistent with severe enteritis. Enteritis treatment as per primary service Serial abdominal exams Flat and upright films in the morning
[2019-04-24 16:10] LABS: Hypochromasia 1+; Lymphocytes % 6 % (10-50); Monocytes % 3 % (2-9); Neutrophils % 89 % (42-76); Total Cells Counted 100
--- NOTE | 2019-04-24 17:02 | History & Physical Report ---
*Admission Date: 04/24/19 *Chief complaint: abdominal pain and distension *History of present illness: Frances is a pleasant 43-year-old female who was recently hospitalized with worsening abdominal pain and distention. At that time she had diarrhea, emesis. Infectious work-up was negative except for a urine culture that just resulted earlier today positive for staph. Patient was discharged earlier this week after that admission. She states since getting home she has been tolerating oral intake with normalizing bowel movements until the past 2 days where she has noticed worsening distention, abdominal pain, and loose watery stools. She states she was taking leftover oxycodone for her abdominal pain. Denies any current nausea or vomiting. Did have a small watery bowel movement when getting her CT earlier today. She was seen in clinic initially due to her worsening abdominal discomfort and distention where concern was evident for peritonitis. CT abdomen obtained showing extensive dilation of the small bowel up to 4 cm with air-fluid levels. Patient admitted emergently for initiation of IV antibiotics, IV fluids, and further work-up. Surgery consulted on admission. At time of presentation to the floor, patient noted to have heart rate greater than 90, white count greater than 24,000, presumed infection in her abdomen. Meeting criteria for sepsis. Reports still passing some gas though minimal amounts. Denies any blood in stool. No chest pain, shortness of breath, syncope. Has continued to take her antihypertensives initiated at the last visit, however feeling dizzy and having low blood pressures at home [facility] History I have reviewed the patient's past medical history: Yes Medical History: Reports:: Depression, Hypertension Denies:: Cancer, Diabetes Mellitus Type 1, Diabetes Mellitus Type 2, MRSA, Seizures *Have you ever received a pneumonia vaccine?: No *Have you received a flu vaccine this season?: Yes Other Medical History: Denies: Blood Transfusion Reaction Other Surgeries: Yes: Other (ECTOPIC ). 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 History (Recent uncomplicated vaginal delivery) Review of Systems - Review of Systems Review of systems:: pertinent systems reviewed and negative unless documented below - *Neurologic Denies abnormal movements Meds Home Medications Medication Instructions Recorded Confirmed Type Fluoxetine HCl [Prozac] 10 mg PO DAILY 04/18/19 04/24/19 History Azithromycin [Zithromax 250mg 250 mg PO DIRECTED 04/24/19 04/24/19 History tab] Labetalol HCl [Normodyne 100mg 300 mg PO BID 04/24/19 04/24/19 History tablet] NIFEdipine [Nifedipine ER] 30 mg PO DAILY 04/24/19 04/24/19 History Nicotine [Nicoderm 21mg/24hr 21 mg TD DAILY 04/24/19 04/24/19 History patch] Allergies Allergy/AdvReac Type Severity Reaction Status Date / Time No Known Allergies Allergy Verified 03/20/19 11:41 Exam Vital signs and Labs for Last 24 Hours: Temp Pulse Resp BP Pulse Ox 98.8 F 93 H 18 120/65 98 04/24/19 14:30 04/24/19 14:30 04/24/19 14:30 04/24/19 14:30 04/24/19 14:30 Laboratory Results - last 24 hr 04/24/19 15:10: WBC 25.4 H*, RBC 3.69 L, Hgb 10.1 L, Hct 31.8 L, MCV 86.0, MCH 27.4, MCHC 31.8, RDW 14.7, Plt Count 525 H D, MPV 7.1 L, Neut % (Auto) 88.2 H, Lymph % (Auto) 6.5 L, [place] % (Auto) 4.5, Eos % (Auto) 0.7, Baso % (Auto) 0.1, Neut # (Auto) 22.4 H, Lymph # (Auto) 1.7, [place] # (Auto) 1.2 H, Eos # (Auto) 0.2, Baso # (Auto) 0.0, Total Counted 100, Neutrophils % (Manual) 89 H, Band Neutrophils % 1.0, Lymphocytes % (Manual) 6 L, Monocytes % (Manual) 3, Metamyelocytes % 1.0, Platelet Estimate Slight increase, Hypochromasia 1+ 04/24/19 15:10: Sodium 130 L, Potassium 3.0 L, Chloride 94 L, Carbon Dioxide 23, Anion Gap 16.0 H, BUN 20 H, Creatinine 0.93, Estimated Creat Clear 85, Estimated GFR 66, Est GFR ( Amer) 80, Glucose 105, Calcium 8.8, Phosphorus 4.1, Magnesium 1.8, Total Bilirubin 0.4, AST 10 L, ALT 12, Alkaline Phosphatase 150 H , Total Protein 7.0, Albumin 2.2 L, Globulin 4.8 H, Albumin/Globulin Ratio 0.5 L 04/24/19 15:10: Lipase 155 I & O for Last 24 hours: Intake & Output 04/21/19 04/22/19 04/23/19 04/24/19 23:59 23:59 23:59 23:59 Weight 67.755 kg - Constitutional mild distress, thin - *Routine HEENT Exam Head: Present: normocephalic, atraumatic Eye: Present: EOMI, PERRL ENT: Present: mucous membranes moist Comments: Edentulous - *Routine Neck Exam Present: supple, full ROM. Absent: JVD - *Routine Respiratory Exam Present: CTA bilaterally. Absent: prolonged expiratory phase - *Routine Cardiovascular Exam Present: RRR. Absent: murmur - *Routine Abdominal Exam Present: soft Comments: Hypoactive bowel sounds, distended, tender to palpation and rebound, positive CVA tenderness bilaterally; no guarding - *Routine Rectal Exam Patient deferred: visual exam - *Routine Exam Patient deferred: external exam - *Routine Extremities Exam Absent: cyanosis, clubbing, edema - *Routine Skin Exam Present: intact. Absent: cyanosis, erythema - *Routine Neurological Exam Present: alert, oriented X3. Absent: altered mental status Assessment and Plan (1) Enteritis Current visit: Yes Status: Acute Category: Medical Code(s): K52.9 - Noninfective gastroenteritis and colitis, unspecified 43-year-old female with Enteritis versus possible partial bowel obstruction. The patient continues to have intermittent diarrhea and intermittent flatus. Negative for nausea and vomiting. Abdominal distention with dilated bowel loops and air-fluid levels on CT. Having fairly severe abdominal pain; however, her physical exam findings and radiographic evidence of much more consistent with severe enteritis. Surgery consulted, appreciate recs: "Seemingly, the patient has enteritis of undetermined etiology. This certainly may be infectious; however, ischemic enteritis must also be considered." Lactate normal on labs. Lower suspicion for ischemia at this time. Initiated Levaquin and Flagyl. Aggressive fluid rehydration. Bowel rest. Will monitor for improvement over the next 24 to 48 hours given readmission. Blood cultures and urine cultures pending. (2) Hypokalemia Current visit: No Status: Acute Category: Medical Code(s): E87.6 - Hypokalemia Monitor for repletion with IV fluids (3) Leukocytosis Current visit: No Status: Acute Qualifiers: Leukocytosis type: leukemoid reaction Qualified Code(s): D72.823 - Leukemoid reaction Category: Medical Code(s): D72.829 - Elevated white blood cell count, unspecified Suspect due to enteritis (4) Smoker Current visit: No Status: Acute Category: Medical Code(s): F17.200 - Nicotine dependence, unspecified, uncomplicated (5) Hypertension, essential Current visit: No Status: Chronic Category: Medical Code(s): I10 - Essential (primary) hypertension Upper tensive on admission to clinic. Holding antihypertensives at this time. Will treat as needed if necessary. (6) Anemia Current visit: Yes Status: Acute Category: Medical Code(s): D64.9 - Anemia, unspecified (7) Hyponatremia Current visit: Yes Status: Acute Category: Medical Code(s): E87.1 - Hypo- osmolality and hyponatremia Suspect hypovolemic hyponatremia given decreased p.o. intake and low blood pressure in clinic. Will provide fluid resuscitation and monitor for improvement and resolution. (8) Sepsis Current visit: Yes Status: Acute Category: Medical Code(s): A41.9 - Sepsis, unspecified organism Suspected infection of enteritis, heart rate greater than 90, elevated white count. Broad-spectrum antibiotics started. Fluid resuscitation initiated. Blood cultures and urine cultures pending. Monitor for improvement. No endorgan damage at this time with negative lactate and normal kidney function.
[2019-04-25 01:14] LABS: Microscopic, Urine URINE MICROSCOPIC (MICROSCOPIC)
[2019-04-25 01:17] LABS: Appearance,Urine CLEAR (Clear); Blood, Urine TRACE-L (Negative); Color,Urine YELLOW (Yellow); Glucose,Urine (UA) Negative (Negative); Ketones,Urine 1+ (Negative); Leukocyte Esterase,Urine Negative (Negative); PH,Urine 6.5 (5.0-8.5); Protein,Urine 1+ (Negative); Urobilinogen,Urine 0.2 EU/dl (0.2)
[2019-04-25 01:24] LABS: Bilirubin,Urine Negative (Negative)
[2019-04-25 01:49] LABS: Bacteria,Urine 1+ /lpf
--- NOTE | 2019-04-25 06:55 | Progress Note ---
Subjective Narrative: Feels "slightly better" this morning. She had a very small bowel movement earlier this morning and states that she has "passed a little bit of gas". Exam Vital signs and Labs for Last 24 Hours: Temp Pulse Resp BP Pulse Ox 98.8 F 97 H 18 141/75 H 100 04/25/19 04:00 04/25/19 04:00 04/25/19 04:00 04/25/19 04:00 04/25/19 04:00 Laboratory Results - last 24 hr 04/24/19 15:10: WBC 25.4 H*, RBC 3.69 L, Hgb 10.1 L, Hct 31.8 L, MCV 86.0, MCH 27.4, MCHC 31.8, RDW 14.7, Plt Count 525 H D, MPV 7.1 L, Neut % (Auto) 88.2 H, Lymph % (Auto) 6.5 L, [place] % (Auto) 4.5, Eos % (Auto) 0.7, Baso % (Auto) 0.1, Neut # (Auto) 22.4 H, Lymph # (Auto) 1.7, [place] # (Auto) 1.2 H, Eos # (Auto) 0.2, Baso # (Auto) 0.0, Total Counted 100, Neutrophils % (Manual) 89 H, Band Neutrophils % 1.0, Lymphocytes % (Manual) 6 L, Monocytes % (Manual) 3, Metamyelocytes % 1.0, Platelet Estimate Slight increase, Hypochromasia 1+ 04/24/19 15:10: Sodium 130 L, Potassium 3.0 L, Chloride 94 L, Carbon Dioxide 23, Anion Gap 16.0 H, BUN 20 H, Creatinine 0.93, Estimated Creat Clear 85, Estimated GFR 66, Est GFR ( Amer) 80, Glucose 105, Calcium 8.8, Phosphorus 4.1, Magnesium 1.8, Total Bilirubin 0.4, AST 10 L, ALT 12, Alkaline Phosphatase 150 H , Total Protein 7.0, Albumin 2.2 L, Globulin 4.8 H, Albumin/Globulin Ratio 0.5 L 04/24/19 15:10: Lactate 0.9 04/24/19 15:10: Lipase 155 04/25/19 01:00: Urine Color Yellow, Urine Appearance Clear, Urine pH 6.5, Ur Specific [place] 1.010, Urine Protein 1+, Urine Glucose (UA) Negative, Urine Ketones 1+, Urine Blood Trace-l, Urine Nitrate Negative, Urine Bilirubin Negative, Urine Urobilinogen 0.2, Ur Leukocyte Esterase Negative, Urine RBC 3-5, Urine WBC 3-5, Ur Squamous Epith Cells 3-5, Urine Bacteria 1+ I & O for Last 24 hours: Intake & Output 04/22/19 04/23/19 04/24/19 04/25/19 11:59 11:59 11:59 11:59 Intake Total 3160 / 3160 Balance 3160 / 3160 Weight 149 lb 2 oz - Constitutional no acute distress - *Routine Respiratory Exam Absent: respiratory distress - *Routine Abdominal Exam Present: soft, tenderness, distended Comments: Somewhat improved Progress Note: A&P (1) Enteritis Status: Acute Assessment and plan: No sign of definitive obstruction clinically or radiographically. Normal lactate yesterday. Continue management as per primary service Continue serial abdominal exams Clear liquid diet order written Current Visit: Yes (2) Hypokalemia Status: Acute Current Visit: No (3) Leukocytosis Status: Acute Current Visit: No (4) Smoker Status: Acute Current Visit: No (5) Hypertension, essential Status: Chronic Current Visit: No (6) Anemia Status: Acute Current Visit: Yes (7) Hyponatremia Status: Acute Current Visit: Yes (8) Sepsis Status: Acute Current Visit: Yes
[2019-04-25 07:53] LABS: Basophils # 0.1 K/mm3 (0-0.2); Basophils % 0.3 % (0.1-2.0); Eosinophils # 0.3 K/mm3 (0.0-0.4); Eosinophils % 1.5 % (0.1-12.0); Hematocrit 28.9 % (37.0-47.0); Hemoglobin 9.1 g/dL (12.2-16.2); Lymphocytes # 1.2 K/mm3 (0.7-4.5); Lymphocytes % 6.8 % (10-50); Mean Corpuscular HGB Conc 31.5 g/dL (31.8-35.4); Mean Corpuscular Volume 87.5 fl (81-99); Monocytes # 0.8 K/mm3 (0.1-1.0); Monocytes % 4.5 % (1.7-9.3); Neutrophils # 15.4 K/mm3 (1.8-7.8); Neutrophils % 86.9 % (37.0-80.0); Platelet Count 417 K/mm3 (142-424); Red Blood Count 3.31 M/mm3 (4.20-5.40); Red Cell Distribution Width 14.8 % (11.5-17.5); White Blood Count 17.7 K/mm3 (4.8-10.8)
[2019-04-25 08:10] LABS: Albumin Level 2.1 gm/dL (3.4-5.0); Albumin/Globulin Ratio 0.5 (1.1-1.8); Bilirubin,Total 0.3 mg/dL (0.2-1.0); Calcium 8.8 mg/dL (8.5-10.1); Globulin 4.3 gm/dl (1.3-3.2); Total Protein,Serum 6.4 gm/dL (6.4-8.2)
--- NOTE | 2019-04-25 08:35 | Progress Note ---
Internal Medicine - PN: Subj *Date: 04/25/19 *Time: 08:32 Interval history: Patient did well over. Nausea and vomiting resolved. Significant improvement abdominal pain. Tolerating clear liquids this morning. Had a few small loose stools overnight. Passed flatus while stooling. Ambulating without difficulty. Able to sit without pain this morning. KUB was still dilated bowel loops. Clinically improved however. Labs showing some improvement this morning denies nausea, vomiting, fever, chest pain, shortness of breath Exam Vital signs and Labs for Last 24 Hours: Temp Pulse Resp BP Pulse Ox 98.4 F 94 H 16 148/85 H 99 04/25/19 07:58 04/25/19 07:58 04/25/19 07:58 04/25/19 07:58 04/25/19 07:58 Laboratory Results - last 24 hr 04/24/19 15:10: WBC 25.4 H*, RBC 3.69 L, Hgb 10.1 L, Hct 31.8 L, MCV 86.0, MCH 27.4, MCHC 31.8, RDW 14.7, Plt Count 525 H D, MPV 7.1 L, Neut % (Auto) 88.2 H, Lymph % (Auto) 6.5 L, [place] % (Auto) 4.5, Eos % (Auto) 0.7, Baso % (Auto) 0.1, Neut # (Auto) 22.4 H, Lymph # (Auto) 1.7, [place] # (Auto) 1.2 H, Eos # (Auto) 0.2, Baso # (Auto) 0.0, Total Counted 100, Neutrophils % (Manual) 89 H, Band Neutrophils % 1.0, Lymphocytes % (Manual) 6 L, Monocytes % (Manual) 3, Metamyelocytes % 1.0, Platelet Estimate Slight increase, Hypochromasia 1+ 04/24/19 15:10: Sodium 130 L, Potassium 3.0 L, Chloride 94 L, Carbon Dioxide 23, Anion Gap 16.0 H, BUN 20 H, Creatinine 0.93, Estimated Creat Clear 85, Estimated GFR 66, Est GFR ( Amer) 80, Glucose 105, Calcium 8.8, Phosphorus 4.1, Magnesium 1.8, Total Bilirubin 0.4, AST 10 L, ALT 12, Alkaline Phosphatase 150 H , Total Protein 7.0, Albumin 2.2 L, Globulin 4.8 H, Albumin/Globulin Ratio 0.5 L 04/24/19 15:10: Lactate 0.9 04/24/19 15:10: Lipase 155 04/25/19 01:00: Urine Color Yellow, Urine Appearance Clear, Urine pH 6.5, Ur Specific [place] 1.010, Urine Protein 1+, Urine Glucose (UA) Negative, Urine Ketones 1+, Urine Blood Trace-l, Urine Nitrate Negative, Urine Bilirubin Negative, Urine Urobilinogen 0.2, Ur Leukocyte Esterase Negative, Urine RBC 3-5, Urine WBC 3-5, Ur Squamous Epith Cells 3-5, Urine Bacteria 1+ 04/25/19 05:44: Stl Aeromonas (PCR) Not detected, Stl C. cayetanensis PCR Not detected, Stool Rotavirus (PCR) Not detected, Stl Adenov F 40/41 PCR Not detected, Stool Astrovirus (PCR) Not detected, Stool Campylobacter PCR Not detected, Stl C.difficile Tox PCR Not detected, Stool Cryptosporidium PCR Not detected, Stl E.coli Shiga Tox PCR Not detected, Stool E coli O157 PCR Not detected, Stl Enterotoxigenic E PCR Not detected, Stool EPEC (PCR) Not detected, Stool EAEC (PCR) Not detected, Stl E. histolytica PCR Not detected, Stool Giardia Lamblia PCR Not detected, Stool Salmonella PCR Not detected, Stool Sapovirus (PCR) Not detected, Stl P. shigelloides PCR Not detected, Stl Shigella/EIEC PCR Not detected, St Y.enterocolitica PCR Not detected, Stool Vibrio (PCR) Not detected, Stl Vibrio cholerae PCR Not detected, Stl Norovirus GI/GII PCR Not detected 04/25/19 07:42: WBC 17.7 H D, RBC 3.31 L, Hgb 9.1 L, Hct 28.9 L, MCV 87.5, MCH 27.5, MCHC 31.5 L, RDW 14.8, Plt Count 417, MPV 9.0, Neut % (Auto) 86.9 H, Lymph % (Auto) 6.8 L, [place] % (Auto) 4.5, Eos % (Auto) 1.5, Baso % (Auto) 0.3, Neut # (Auto) 15.4 H, Lymph # (Auto) 1.2, [place] # (Auto) 0.8, Eos # (Auto) 0.3, Baso # (Auto) 0.1 04/25/19 07:42: Sodium 134 L, Potassium 3.0 L, Chloride 97 L, Carbon Dioxide 25, Anion Gap 15.0, BUN 21 H, Creatinine 0.92, Estimated Creat Clear 86, Estimated GFR 67, Est GFR ( Amer) 81, Glucose 106, Calcium 8.8, Total Bilirubin 0.3, AST 11 L, ALT 13, Alkaline Phosphatase 124 H, Total Protein 6.4, Albumin 2.1 L, Globulin 4.3 H, Albumin/Globulin Ratio 0.5 L I & O for Last 24 hours: Intake & Output 04/22/19 04/23/19 04/24/19 04/25/19 23:59 23:59 23:59 23:59 Intake Total 2781 / 2901 1019 / 1019 Balance 2781 / 2901 1019 / 1019 Weight 67.755 kg 67.642 kg - Constitutional no acute distress - *Routine HEENT Exam Head: Present: normocephalic, atraumatic Eye: Present: EOMI, PERRL Comments: Edentulous - *Routine Neck Exam Present: supple. Absent: JVD - *Routine Respiratory Exam Present: CTA bilaterally. Absent: prolonged expiratory phase, rales, wheezes, crackles - *Routine Cardiovascular Exam Present: RRR - *Routine Abdominal Exam Present: soft, tenderness (Significant interval improvement,) Comments: Hypoactive bowel sounds - *Routine Neurological Exam Present: alert, oriented X3. Absent: altered mental status Assessment and Plan (1) Enteritis Current visit: Yes Status: Acute Category: Medical Code(s): K52.9 - Noninfective gastroenteritis and colitis, unspecified (2) Hypokalemia Current visit: No Status: Acute Category: Medical Code(s): E87.6 - Hypokalemia (3) Leukocytosis Current visit: No Status: Acute Qualifiers: Leukocytosis type: leukemoid reaction Qualified Code(s): D72.823 - Leukemoid reaction Category: Medical Code(s): D72.829 - Elevated white blood cell count, unspecified (4) Smoker Current visit: No Status: Acute Category: Medical Code(s): F17.200 - Nicotine dependence, unspecified, uncomplicated (5) Hypertension, essential Current visit: No Status: Chronic Category: Medical Code(s): I10 - Essential (primary) hypertension (6) Anemia Current visit: Yes Status: Acute Category: Medical Code(s): D64.9 - Anemia, unspecified (7) Hyponatremia Current visit: Yes Status: Acute Category: Medical Code(s): E87.1 - Hypo- osmolality and hyponatremia (8) Sepsis Current visit: Yes Status: Acute Category: Medical Code(s): A41.9 - Sepsis, unspecified organism - Assessment and plan all Dx Assessment and Plan for all problems:: Patient's enteritis is improving. Will slowly advance diet today. Leukocytosis resolving as well. Continue IV antibiotics, advance diet to full liquid at lunch. Monitor for another 24 hours. If able to tolerate bland diet by morning, transition oral antibiotics to complete course at home.
[2019-04-25 08:46] LABS: Lymphocytes % 6 % (10-50); Monocytes % 4 % (2-9); Neutrophils % 84 % (42-76); Total Cells Counted 100
[2019-04-26 07:11] LABS: Basophils % 0.3 % (0.1-2.0); Eosinophils # 0.2 K/mm3 (0.0-0.4); Eosinophils % 1.6 % (0.1-12.0); Hematocrit 29.9 % (37.0-47.0); Hemoglobin 9.4 g/dL (12.2-16.2); Lymphocytes # 1.1 K/mm3 (0.7-4.5); Lymphocytes % 8.2 % (10-50); Mean Corpuscular HGB Conc 31.5 g/dL (31.8-35.4); Mean Corpuscular Volume 86.4 fl (81-99); Mean Platelet Volume 6.8 fl (7.4-10.4); Monocytes # 0.7 K/mm3 (0.1-1.0); Monocytes % 5.2 % (1.7-9.3); Neutrophils # 11.7 K/mm3 (1.8-7.8); Neutrophils % 84.7 % (37.0-80.0); Platelet Count 480 K/mm3 (142-424); Red Blood Count 3.46 M/mm3 (4.20-5.40); Red Cell Distribution Width 14.9 % (11.5-17.5); White Blood Count 13.9 K/mm3 (4.8-10.8)
[2019-04-26 07:16] LABS: Anion Gap 13.1 mEq/L (5-15); Calcium 8.5 mg/dL (8.5-10.1)
--- NOTE | 2019-04-26 07:27 | Discharge Summary ---
General - General Admission date:: 04/24/19 Discharge date: 04/26/19 HPI HPI: Frances is a pleasant 43-year-old female who was recently hospitalized with worsening abdominal pain and distention. At that time she had diarrhea, emesis. Infectious work-up was negative except for a urine culture that just resulted earlier today positive for staph. Patient was discharged earlier this week after that admission. She states since getting home she has been tolerating oral intake with normalizing bowel movements until the past 2 days where she has noticed worsening distention, abdominal pain, and loose watery stools. She states she was taking leftover oxycodone for her abdominal pain. Denies any current nausea or vomiting. Did have a small watery bowel movement when getting her CT earlier today. She was seen in clinic initially due to her worsening abdominal discomfort and distention where concern was evident for peritonitis. CT abdomen obtained showing extensive dilation of the small bowel up to 4 cm with air-fluid levels. Patient admitted emergently for initiation of IV antibiotics, IV fluids, and further work-up. Surgery consulted on admission. At time of presentation to the floor, patient noted to have heart rate greater than 90, white count greater than 24,000, presumed infection in her abdomen. Meeting criteria for sepsis. Reports still passing some gas though minimal amounts. Denies any blood in stool. No chest pain, shortness of breath, syncope. Has continued to take her antihypertensives initiated at the last visit, however feeling dizzy and having low blood pressures at home Hospital Course Hospital Course: Patient was admitted, placed on antibiotics for colitis, namely levofloxacin and Flagyl. She tolerated these well and felt better. She continued to have some swelling and gas pains, which caused significant pain. CT scan was repeated showing colitis, worse than previous admission, but no evidence of bowel obstruction. Again, PCR testing of stool was negative. However, on the positive side, leukocytosis resolved with improving white blood cell counts. Patient tolerated advanced diet well through the day yesterday, but did have some bloating and pain earlier this morning. However, she wishes to go home and feels like she can maintain oral intake of fluids at home but does wish to have some pain medication availability and thinks that Toradol has done a very nice job for her pain intravenously. Plan will be to discharge her home on Flagyl, she will continue Levaquin that she has at home for previously diagnosed staphylococcal urinary tract infection, and we will give her a prescription for Toradol and short-term hydrocodone. I will schedule her an appointment in the office on Sunday with lab work before that appointment. Continue bland diet with clears, yogurt and mashed potatoes. No caffeine or carbonated beverages. Of note her electrolytes are improving, specifically her hyponatremia and hypokalemia. She will resume her regular blood pressure medication as previously discussed in the office. Objective Vital signs: Temp Pulse Resp BP Pulse Ox 98.4 F 87 18 163/76 H 98 04/26/19 04:00 04/26/19 04:00 04/26/19 04:00 04/26/19 04:16 04/26/19 04:00 Narrative: Pleasant, alert, afebrile. Lungs clear. Heart rate regular. Abdomen soft, positive bowel sounds. Some tenderness with vigorous palpation in the lower quadrants bilaterally but no rebound or guarding. No edema or clubbing. No skin rash. Neurologically intact. Results Labs on day of discharge: Labs from last 24 hours 04/26/19 04/26/19 04/25/19 06:08 06:08 07:42 WBC 13.9 H RBC 3.46 L Hgb 9.4 L Hct 29.9 L MCV 86.4 MCH 27.3 MCHC 31.5 L RDW 14.9 Plt Count 480 H MPV 6.8 L Neut % (Auto) 84.7 H Lymph % (Auto) 8.2 L Anderson % (Auto) 5.2 Eos % (Auto) 1.6 Baso % (Auto) 0.3 Neut # (Auto) 11.7 H Lymph # (Auto) 1.1 Anderson # (Auto) 0.7 Eos # (Auto) 0.2 Baso # (Auto) 0.0 Total Counted Neutrophils % (Manual) Band Neutrophils % Lymphocytes % (Manual) Monocytes % (Manual) Platelet Estimate Sodium 139 134 L Potassium 3.1 L 3.0 L Chloride 102 97 L Carbon Dioxide 27 25 Anion Gap 13.1 15.0 BUN 16 21 H Creatinine 1.02 0.92 Estimated Creat Clear 78 86 Estimated GFR 60 67 Est GFR ( Amer) 72 81 Glucose 123 H 106 Calcium 8.5 8.8 Total Bilirubin 0.3 AST 11 L ALT 13 Alkaline Phosphatase 124 H Total Protein 6.4 Albumin 2.1 L Globulin 4.3 H Albumin/Globulin Ratio 0.5 L Stl Aeromonas (PCR) Stl C. cayetanensis PCR Stool Rotavirus (PCR) Stl Adenov F PCR Stool Astrovirus (PCR) Stool Campylobacter PCR Stl C.difficile Tox PCR Stool Cryptosporidium PCR Stl E.coli Shiga Tox PCR Stool E coli O157 PCR Stl Enterotoxigenic E PCR Stool EPEC (PCR) Stool EAEC (PCR) Stl E. histolytica PCR Stool Giardia Lamblia PCR Stool Salmonella PCR Stool Sapovirus (PCR) Stl P. shigelloides PCR Stl Shigella/EIEC PCR St Y.enterocolitica PCR Stool Vibrio (PCR) Stl Vibrio cholerae PCR Stl Norovirus GI/GII PCR 04/25/19 04/25/19 07:42 05:44 WBC 17.7 H D RBC 3.31 L Hgb 9.1 L Hct 28.9 L MCV 87.5 MCH 27.5 MCHC 31.5 L RDW 14.8 Plt Count 417 MPV 9.0 Neut % (Auto) 86.9 H Lymph % (Auto) 6.8 L Anderson % (Auto) 4.5 Eos % (Auto) 1.5 Baso % (Auto) 0.3 Neut # (Auto) 15.4 H Lymph # (Auto) 1.2 Anderson # (Auto) 0.8 Eos # (Auto) 0.3 Baso # (Auto) 0.1 Total Counted 100 Neutrophils % (Manual) 84 H Band Neutrophils % 6.0 Lymphocytes % (Manual) 6 L Monocytes % (Manual) 4 Platelet Estimate Normal Sodium Potassium Chloride Carbon Dioxide Anion Gap BUN Creatinine Estimated Creat Clear Estimated GFR Est GFR ( Amer) Glucose Calcium Total Bilirubin AST ALT Alkaline Phosphatase Total Protein Albumin Globulin Albumin/Globulin Ratio Stl Aeromonas (PCR) Not detected Stl C. cayetanensis PCR Not detected Stool Rotavirus (PCR) Not detected Stl Adenov F PCR Not detected Stool Astrovirus (PCR) Not detected Stool Campylobacter PCR Not detected Stl C.difficile Tox PCR Not detected Stool Cryptosporidium PCR Not detected Stl E.coli Shiga Tox PCR Not detected Stool E coli O157 PCR Not detected Stl Enterotoxigenic E PCR Not detected Stool EPEC (PCR) Not detected Stool EAEC (PCR) Not detected Stl E. histolytica PCR Not detected Stool Giardia Lamblia PCR Not detected Stool Salmonella PCR Not detected Stool Sapovirus (PCR) Not detected Stl P. shigelloides PCR Not detected Stl Shigella/EIEC PCR Not detected St Y.enterocolitica PCR Not detected Stool Vibrio (PCR) Not detected Stl Vibrio cholerae PCR Not detected Stl Norovirus GI/GII PCR Not detected Preliminary micro results at discharge 04/25/19 01:00 Urine Culture - Preliminary Urine,Clean Catch NO GROWTH AFTER 24 HOURS DS: Diagnosis - Discharge Diagnosis (1) Enteritis Status: Acute (2) Hypokalemia Status: Acute (3) Leukocytosis Status: Resolved (4) Smoker Status: Acute (5) Hypertension, essential Status: Chronic (6) Anemia Status: Acute (7) Hyponatremia Status: Acute (8) Sepsis Status: Acute Discharge Plan - Patient Discharge Instructions ACTIVITY: Continue current activity DIET: continue same diet (Clear liquids, with yogurt and bland foods no caffeine or carbonated beverages) Patient Instructions: Anemia, DI for Viral Gastroenteritis -- Adult, DI for Hyponatremia, DI for Bacterial Gastroenteritis -- Adult, DI for Sepsis -- Adult - Follow up Plan Follow up with: Danial Larry MD [Staff Physician] - 04/29/19 Disposition: Home, Self-Shelter Medications: Home Medications Medication Instructions Recorded Confirmed Type Fluoxetine HCl [Prozac] 10 mg PO DAILY 04/18/19 04/24/19 History Azithromycin [Zithromax 250mg 250 mg PO DIRECTED 04/24/19 04/24/19 History tab] Labetalol HCl [Normodyne 100mg 300 mg PO BID 04/24/19 04/24/19 History tablet] NIFEdipine [Nifedipine ER] 30 mg PO DAILY 04/24/19 04/24/19 History Nicotine [Nicoderm 21mg/24hr 21 mg TD DAILY 04/24/19 04/24/19 History patch] Hydrocodone/Acetaminophen [[place] 1 - 2 tab PO TID PRN #21 tab 04/26/19 Rx 7.5-325 Tablet] Ketorolac Tromethamine [Toradol 10 mg PO Q4H 5 Days #30 tab 04/26/19 Rx 10mg tablet] levoFLOXacin [Levaquin 500mg 500 mg PO DAILY #7 tab 04/26/19 Rx tab] metroNIDAZOLE [Flagyl 500mg 500 mg PO Q8H #21 tab 04/26/19 Rx Tablet] Prescriptions/Medication Reconciliation: New levoFLOXacin [Levaquin 500mg tab] 500 mg PO DAILY #7 tab Ketorolac Tromethamine [Toradol 10mg tablet] 10 mg PO Q4H 5 Days #30 tab Hydrocodone/Acetaminophen [[place] 7.5-325 Tablet] 1 - 2 tab PO TID PRN #21 tab PRN Reason: Severe Pain metroNIDAZOLE [Flagyl 500mg Tablet] 500 mg PO Q8H #21 tab Continued Fluoxetine HCl [Prozac] 10 mg PO DAILY NIFEdipine [Nifedipine ER] 30 mg PO DAILY Labetalol HCl [Normodyne 100mg tablet] 300 mg PO BID Nicotine [Nicoderm 21mg/24hr patch] 21 mg TD DAILY Discontinued Azithromycin [Zithromax 250mg tab] 250 mg PO DIRECTED Other Amb Orders: Complete Blood Count Auto Diff Time Frame: 04/29/19, Location: None Selected Comprehensive Metabolic Panel Time Frame: 04/29/19, Location: None Selected - Problem Reconciliation Problems Reviewed?: Yes
[2019-04-26 08:56] VITALS: BP 172/97
== END 2019-04-26 09:44 | disposition home or self-care (01) | DRG 392 ==
LOC: RAD 11:19 → 2ND 13:31
PROVIDERS: ADMIT Internal Medicine Adolescent Medicine; ATTEND Internal Medicine Adolescent Medicine
CPT/HCPCS: 36415; 74021; 74022; 74177; 80048; 80053; 81001; 83605; 83690; 83735; 84100; 85007; 85025; 87040; 87086; 87507; G0378; J1956; Q9967

== ENCOUNTER → 2021-03-11 10:50 | Outpatient (CLI) | payer OTHER, SELFPAY ==
[2021-03-11 12:03] LABS: Basophils # 0.1 K/mm3 (0-0.2); Basophils % 0.9 % (0.1-2.0); Eosinophils # 0.2 K/mm3 (0.0-0.4); Eosinophils % 1.5 % (0.1-12.0); Hematocrit 42.3 % (37.0-47.0); Hemoglobin 14.1 g/dL (12.2-16.2); Lymphocytes # 2.6 K/mm3 (0.7-4.5); Lymphocytes % 17.2 % (10-50); Mean Corpuscular HGB Conc 33.4 g/dL (31.8-35.4); Mean Corpuscular Hemoglobin 29.9 pg (27.0-31.2); Mean Corpuscular Volume 89.6 fl (81-99); Monocytes # 0.6 K/mm3 (0.1-1.0); Neutrophils # 11.6 K/mm3 (1.8-7.8); Neutrophils % 76.4 % (37.0-80.0); Platelet Count 401 K/mm3 (142-424); Red Blood Count 4.72 M/mm3 (4.20-5.40); Red Cell Distribution Width 14.8 % (11.5-17.5); White Blood Count 15.2 K/mm3 (4.8-10.8)
[2021-03-11 12:05] LABS: MANUAL DIFFERENTIAL MANUAL DIFFERENTIAL (MANUAL DIFF)
[2021-03-11 12:12] LABS: Lymphocytes % 11 % (10-50); Neutrophils % 84 % (42-76); Platelet Estimate Normal; RBC Morphology Normal; Total Cells Counted 100
[2021-03-11 12:30] LABS: Alanine Aminotransferase 10 U/L (12-78); Albumin Level 4.6 g/dl (3.5-5.0); Albumin/Globulin Ratio 1.6 (1.1-1.8); Alkaline Phosphatase 59 U/L (38-126); Aspartate Amino Transferase 20 U/L (14-36); Bilirubin,Total 0.6 mg/dl (0.2-1.3); Blood Urea Nitrogen 10 mg/dl (7-17); Calcium 9.5 mg/dl (8.4-10.2); Carbon Dioxide 26 mmol/L (22.0-30.0); Chloride 107 mmol/L (98-107); Estimated Glomerular Filt Rate 68 ml/min (>60); GFR (African American) 83 ML/MIN (>60); Globulin 2.8 g/dL (1.3-3.2); Glucose 80 mg/dl (74-100); Sodium 140 mmol/L (136-145); Total Protein,Serum 7.4 g/dl (6.3-8.2)
[2021-03-11 12:35] LABS: C-Reactive Protein 0.4 mg/L (0-4)
[2021-03-12 16:17] LABS: Deamidated Gliadin Abs, IgA 5 units (0-19); Deamidated Gliadin Abs, IgG 2 units (0-19); Tissue Transglutaminase IgA Ab <2 U/mL (0-3); Tissue Transglutaminase IgG Ab 10 U/mL (0-5)
== END ==
PROVIDERS: Visit Provider Internal Medicine Adolescent Medicine
DX: R19.7 Diarrhea, unspecified (principal)
CPT/HCPCS: 36415; 80053; 83516; 85007; 85025; 86140